=== PATIENT | male | born 1980 | race African-American/Black ===

== ENCOUNTER 2017-07-10 06:51 | Emergency (ER) | payer OTHER ==
[2017-07-10 07:21] VITALS: BMI 26.6
--- NOTE | 2017-07-10 07:34 | PDOC ---
Attending Attestation - Resident Resident Name: Garrick Strange - ED Attending Attestation I have performed the following: I have examined & evaluated the patient, The case was reviewed & discussed with the resident, I agree w/resident's findings & plan, Exceptions are as noted - Medical Decision Making 07/10/17 08:15 36yo M presents to the ED requesting STI testing. Pt intoxicated. Consents verbally to HIV test. Plan -HIV test -GC/CT testing -reassess 07/10/17 10:05 HIV testing negative. Tx empirically for STI with azithro/ctx Pt has metabolized etoh, ambulating in ED with steady gait with no complaints Tolerating PO Requests DC home. I discussed the physical exam findings, ancillary test results and final diagnoses with the patient. I answered all of the patient's questions. The patient was satisfied with the care received and felt comfortable with the discharge plan and treatment plan. The patient will call their primary care physician within 24 hours to arrange follow-up and will return to the Emergency Department with any new, persistent or worsening symptoms. <Arvin Herr - Last Filed: 07/10/17 10:10> - HPI HPI: 07/10/17 08:54 The patient is a 36 year old male, with no significant past medical history, who presents to the emergency department requesting STI testing. The patient states that he is having unprotected sex with his girlfriend. He states that he has no reason to believe that he has an STI but he wants to be tested anyways. He denies any fever, chills, headache, dysuria, hematuria, urinary frequency/ urgency or any penile discharge. The patient reports consuming one beer prior to presenting to the emergency department. Denies drug use. Denies sore throat, rash. Denies CP/SOB. Allergies: None reported. Past Surgical History: None reported. Social History: Non-smoker. Reports alcohol use. Denies drug use. - Physicial Exam PE: 07/10/17 08:54 GENERAL: Alcohol noted on breath. Awake, alert, and fully oriented, in no acute distress. HEAD: No signs of trauma. EYES: PERRLA, EOMI, sclera anicteric, conjunctiva clear. ENT: Auricles normal inspection, hearing grossly normal, nares patent, oropharynx clear without exudates. Moist mucosa. NECK: Normal ROM, supple, no lymphadenopathy, JVD, or masses. LUNGS: Breath sounds equal, clear to auscultation bilaterally. No wheezes, and no crackles. HEART: Regular rate and rhythm, normal S1 and S2, no murmurs, rubs or gallops. ABDOMEN: Soft, nontender, normoactive bowel sounds. No guarding, no rebound. No masses. EXTREMITIES: Normal range of motion, no edema. No clubbing or cyanosis. No cords , erythema, or tenderness. BACK: No midline spinal tenderness in cervical/thoracic/lumbar region. NEUROLOGICAL: Normal speech, cranial nerves intact, negative pronator drift, 5/ 5 strength in all 4 extremities, normal sensation to light touch in all 4 extremities, normal cerebellar exam, normal gait, normal reflexes and tone. SKIN: Warm, dry, normal turgor, no rashes or lesions noted. - Medical Decision Making 07/10/17 11:00 Documentation prepared by Kiah Johnson, acting as medical coding specialist for Arvin Herr MD. <Kiah Johnson - Last Filed: 07/10/17 11:00>
--- NOTE | 2017-07-10 08:36 | PDOC ---
History of Present Illness - General History Source: Patient Exam Limitations: Intoxication - History of Present Illness Initial Comments: 07/10/17 08:21 36m intoxicated patient known for use of marijuana and PCP comes to the ED requesting an STD panel test. He denies any risky sexual activity but states he has unprotected with his girlfriend and wants a regular check up. Patient states that that he only had one beer this morning. No symptoms of STD at this time. <Garrick Strange - Last Filed: 07/10/17 09:49> <Arvin Herr - Last Filed: 07/10/17 09:52> - General Chief Complaint: Pain Stated Complaint: STI EVALUATION Time Seen by Provider: 07/10/17 07:24 Past History - Past Medical History COPD: No - Immunization History Immunization Up to Date: No - Suicide/Smoking/Psychosocial Hx Smoking Status: Yes Smoking History: Current every day smoker Have you smoked in the past 12 months: Yes Number of Cigarettes Smoked Daily: 6 If you are a former smoker, when did you quit?: did not want packet or hiv info sheet Information on smoking cessation initiated: Yes 'Breaking Loose' booklet given: 07/10/17 Hx Alcohol Use: No Drug/Substance Use Hx: No Substance Use Type: None Hx Substance Use Treatment: No <Garrick Strange - Last Filed: 07/10/17 09:49> <Arvin Herr - Last Filed: 07/10/17 09:52> - Past Medical History Allergies/Adverse Reactions: Allergies Allergy/AdvReac Type Severity Reaction Status Date / Time No Known Allergies Allergy Verified 07/10/17 07:16 Home Medications: Ambulatory Orders NK [No Known Home Medication] 06/21/14 Review of Systems - Review of Systems Able to Perform ROS?: Yes Is the patient limited Marshallese proficient: No Constitutional: No: Symptoms Reported HEENTM: No: Symptoms Reported Respiratory: No: Symptoms reported Cardiac (ROS): No: Symptoms Reported ABD/GI: No: Symptoms Reported : No: Symptoms Reported Musculoskeletal: No: Symptoms Reported Integumentary: No: Symptoms Reported Neurological: No: Symptoms reported All Other Systems: Reviewed and Negative <Garrick Strange - Last Filed: 07/10/17 09:49> *Physical Exam - Vital Signs Last Vital Signs Temp Pulse Resp BP Pulse Ox 99.2 F 110 H 18 139/86 100 07/10/17 07:18 07/10/17 07:18 07/10/17 07:18 07/10/17 07:18 07/10/17 07:18 - Physical Exam General Appearance: Yes: Intoxicated HEENT: positive: EOMI, GLENDY, Normal ENT Inspection Respiratory/Chest: positive: Lungs Clear, Normal Breath Sounds. negative: Chest Tender, Respiratory Distress Cardiovascular: positive: Regular Rhythm, Regular Rate, S1, S2 Gastrointestinal/Abdominal: positive: Normal Bowel Sounds, Flat, Soft. negative : Tender Musculoskeletal: positive: Normal Inspection. negative: CVA Tenderness Extremity: positive: Normal Capillary Refill, Normal Inspection, Normal Range of Motion Integumentary: positive: Normal Color, Dry, Warm Neurologic: positive: Fully Oriented, Alert, Normal Mood/Affect, Normal Response , Motor Strength 5/5 <Garrick Strange - Last Filed: 07/10/17 09:49> - Vital Signs Last Vital Signs Temp Pulse Resp BP Pulse Ox 99.2 F 110 H 18 139/86 100 07/10/17 07:18 07/10/17 07:18 07/10/17 07:18 07/10/17 07:18 07/10/17 07:18 <Arvin Herr - Last Filed: 07/10/17 09:52> Medical Decision Making - Medical Decision Making 07/10/17 08:41 36m presents to the for std test, intoxicated. Will draw std panel and discharge. <Garrick Strange - Last Filed: 07/10/17 09:49> *DC/Admit/Observation/Transfer - Discharge Dispostion Admit: No <Garrick Strange - Last Filed: 07/10/17 09:49> <Arvin Herr - Last Filed: 07/10/17 09:52> Diagnosis at time of Disposition: Screen for STD (sexually transmitted disease) - Discharge Dispostion Disposition: HOME Condition at time of disposition: Unchanged/Unknown - Patient Instructions Printed Discharge Instructions: Facts About Sexually Transmitted Infections Additional Instructions: 07/10/17 1. As discussed, a screening test for the HIV virus was performed today. Your HIV test is Negative (normal). 2. As discussed, if you engaged in high risk-behavior in the three (3) months prior to this test, you could still potentially be at risk and you will need to be re-tested. 3. As discussed, avoid any high risk behavior (such as unprotected sex or needle-sharing) in the future to minimize the chances of gavi HIV. Come back to the ER for any new, worsening or concerning symptoms
[2017-07-10] MEDS ORDERED: AZITHROMYCIN 500 MG TABLET PO ONE ×2 (09:56→10:12)
[2017-07-10] MEDS ORDERED: cefTRIAXone SODIUM 1 GM VIAL ONE (09:59)
[2017-07-10] MEDS ORDERED: AZITHROMYCIN 250 MG TABLET ONE ×2 (09:59→10:06)
[2017-07-10] MEDS ORDERED: LIDOCAINE HCL 1%, 10 MG/ML (20ML VIAL) ONE (10:00)
[2017-07-10] MEDS ORDERED: AZITHROMYCIN 1 GM PACKET PO ONE (10:06)
[2017-07-10 10:12] VITALS: BP 129/75; PULSE 84; TEMP 98.4
== END 2017-07-10 10:12 | disposition home or self-care (01) ==
LOC: JER 06:51
DX: Z11.3 Encounter for screening for infections with a predominantly sexual mode of transmission (principal); F17.210 Nicotine dependence, cigarettes, uncomplicated
CPT/HCPCS: 36415; 86593; 87389; 87491; 87591; 99281-25

== ENCOUNTER 2018-08-19 09:04 | Emergency (ER) | payer OTHER | END 2018-08-19 10:16 | disposition home or self-care (01) | LOC: JERFT 09:04 ==

== ENCOUNTER 2018-10-04 05:00 | Emergency (ER) | payer OTHER | END 2018-10-04 06:07 | disposition home or self-care (01) | LOC: JER 05:00 ==

== ENCOUNTER 2019-10-26 18:26 | Emergency (ER) | payer OTHER ==
--- NOTE | 2019-10-26 18:31 | PDOC ---
Rapid Medical Evaluation Time Seen by Provider: 10/26/19 18:30 Medical Evaluation: Allergies Allergy/AdvReac Type Severity Reaction Status Date / Time No Known Allergies Allergy Verified 10/04/18 05:03 10/26/19 18:30 I have performed a brief in-person evaluation of this patient. CC: "I need a psychiatric evaluation." Denies AH,VH,SI,HI,PI. PE: No focal findings. Orders: nothing Patient to proceed to ED for further evaluation. 10/26/19 18:31 Discharge Disposition - Diagnosis Psychiatric care - Referrals - Patient Instructions - Post Discharge Activity
[2019-10-26 18:52] VITALS: TEMP 98.6; BMI 25.0
--- NOTE | 2019-10-26 19:21 | PDOC ---
History of Present Illness - General Chief Complaint: Suicidal Stated Complaint: ANXIETY Time Seen by Provider: 10/26/19 18:30 Past History - Medical History Allergies/Adverse Reactions: Allergies Allergy/AdvReac Type Severity Reaction Status Date / Time No Known Allergies Allergy Verified 10/26/19 18:31 Home Medications: Ambulatory Orders Sertraline HCl [Zoloft -] 25 mg PO DAILY #30 tablet 10/27/19 COPD: No - Immunization History Immunization Up to Date: No - Psycho-Social/Smoking History Smoking Status: Yes Smoking History: Current every day smoker Have you smoked in the past 12 months: Yes Number of Cigarettes Smoked Daily: 6 If you are a former smoker, when did you quit?: did not want packet or hiv info sheet Information on smoking cessation initiated: No 'Breaking Loose' booklet given: 07/10/17 - Substance Abuse Hx (Audit-C & DAST Scrn) How often the patient has a drink containing alcohol: Never Score: In Men: 4 or > Positive; In Women: 3 or > Positive: 0 Screen Result (Pos requires Nsg. Audit-10AR): Negative In the last yr the pt used illegal drug/Rx for NonMed reason: No Score: Yes response is considered Positive: 0 Screen Result (Positive result requires Nsg. DAST-10): Negative *Physical Exam - Vital Signs Last Vital Signs Temp Pulse Resp BP Pulse Ox 98.6 F 96 H 18 117/70 95 10/26/19 18:32 10/26/19 18:32 10/26/19 18:32 10/26/19 18:32 10/26/19 18:32 ED Treatment Course - LABORATORY CBC & Chemistry Diagram: 10/26/19 09:27 10/26/19 09:27 Medical Decision Making - Medical Decision Making 10/26/19 19:20 HPI: 39yo M hx smoking and polysubstance abuse (alcohol, K2, smoking, multiple others will not say which) presents from home c/o depression and wanting to get his life together. Pt does not know how long he's been depressed. Pt states he wants to sleep, be monitored, and see a mental health specialist. Pt states he's medically and physically fine and refuses labs. Pt states he does not have a sa fe place to go tonight. States last use of alcohol and all substances was yesterday. Pt states he went to get his ID from [employer] yesterday and was refused and it made him depressed. Denies hx suicide, hx self-harm, SI, HI, AVH, pain anywhere, trauma, head injury, fall, fever, chills, headache, dizziness, numbness/tingling, weakness, vision changes, shortness of breath, cough, chest pain, palpitations, leg swelling, abdominal pain, blood in stool, diarrhea, constipation, nausea, vomiting, dysuria, hematuria, confusion. ROS: Constitutional: Positive for wanting to sleep. Negative for chills, fever, fatigue, diaphoresis. HENT: Negative for sore throat, rhinorrhea, congestion. Eyes: Negative for visual disturbance. Respiratory: Negative for shortness of breath, cough, and wheezing. Cardiovascular: Negative for chest pain, palpitations, and leg swelling. Gastrointestinal: Negative for abdominal pain, blood in stool, constipation, diarrhea, nausea, and vomiting. Genitourinary: Negative for dysuria, flank pain, and hematuria. Musculoskeletal: Negative for myalgias, back pain, and neck pain. Skin: Negative for rash. Neurological: Negative for light-headedness, dizziness, vertigo, syncope, weakness, numbness and headaches. Psychiatric/Behavioral: Positive for depression and polysubstance abuse. Negative for SI, HI, AVH, confusion. PE: Gen: Alert, NAD, comfortable-appearing. HEENT: PERRL, EOMI, MMM, NCAT. No conjunctival pallor. Sclera are non-icteric. CV: Regular rate and rhythm. No murmurs, rubs, or gallops. PULM: No resp distress. CTAB, no wheezes, rales, or rhonchi. ABD: soft, NT/ND, no rebound tenderness or guarding. BACK: No TTP of c/t/l-spine. No step-offs or deformities. MSK: No bony deformities. 2+ pulses in all extremities. NEURO: AAOx3. PERRL. No gross CN deficits. Strength and sensation grossly intact throughout. Normal gait. EXTREMITIES: No cyanosis. No clubbing. No edema. No calf tenderness. PSYCH: Anxious depressed mood, paranoid thought pattern, some flight of ideas, no pressured speech. SKIN: Warm and dry. Normal capillary refill. No rashes. No jaundice. MDM: 39yo M hx smoking and polysubstance abuse (alcohol, K2, smoking, multiple others will not say which) presents from home with depression, wanting to get his life together. Hemodynamically stable, afebrile, neurologically intact. Anxious depressed mood, paranoid thought pattern, some flight of ideas, no pressured speech. Ddx: no s/s concerning for emergent medical pathology at this time. Utox to evaluate for substance abuse and substance-induced depression. No SI/HI/AVH endorsed to me, but per chart, pt endorsed SI to nurse - consult psych. -1:1 placed by E -Utox/UA -Psych consult - called Dr Wilkerson -Dispo: pending w/u and reassessment 10/26/19 22:[address] Saucedo. Discharge - Discharge Information Problems reviewed: Yes Clinical Impression/Diagnosis: Psychiatric care Adjustment disorder Qualifiers: Adjustment disorder type: with depressed mood Qualified Code(s): F43.21 - Adjustment disorder with depressed mood Depression Qualifiers: Depression Type: unspecified Qualified Code(s): F32.9 - Major depressive disorder, single episode, unspecified Condition: Stable Disposition: HOME - Additional Discharge Information Prescriptions: Sertraline HCl [Zoloft -] 25 mg PO DAILY #30 tablet - Follow up/Referral Referrals: Usman Garcia MD [Staff Physician] - - Patient Discharge Instructions Patient Printed Discharge Instructions: DI for Depression -- Adult, DI for Adjustment Disorder - Post Discharge Activity Work/Back to School Note: My Personal Safety Plan
--- NOTE | 2019-10-26 20:26 | PDOC ---
Documentation entered by Amparo Hendricks SCRIBE, acting as scribe for Maria Dolores Gutierrez DO. Maria Dolores Gutierrez DO: This documentation has been prepared by the mohiniibe, Amparo Hendricks SCRIBE, under my direction and personally reviewed by me in its entirety. I confirm that the documentation accurately reflects all work, treatment, procedures, and medical decision making performed by me. Attending Attestation - Resident Resident Name: Poonam Santos - ED Attending Attestation I have performed the following: I have examined & evaluated the patient, The case was reviewed & discussed with the resident, I agree w/resident's findings & plan, Exceptions are as noted - HPI HPI: 10/26/19 20:27 The patient is a 39-year-old male with no reported past medical history who presents to the emergency department seeking mental health help. The patient reports he feels depressed and wants to get his life together The patient is requesting to speak to a mental health professional." The patient reports he went to get his identify back at [employer] yesterday but he wasnt able to get it back. Denies any pain. Denies self-harm plan or plans to hurt others. The patient reports he lives alone and brought himself to the ED. The patient endorsed suicidal ideation to nurse at triage, however, during our examination he denies SI or HI. Social history: Denies alcohol or tobacco use today. Denies any medication use. - Physicial Exam PE: 10/26/19 20:18 Constitutional: Awake, alert, oriented. No acute distress. Head: Normocephalic. Atraumatic Eyes: PERRL. EOMI. Conjunctivae are not pale. ENT: Mucous membranes are moist and intact. Posterior pharynx without exudate or erythema. Uvula midline. Neck: Supple. Full ROM. No lymphadenopathy. Cardiovascular: Regular rate. Regular rhythm. S1, S2 regular. Pulmonary/Chest: No evidence of respiratory distress. Clear to auscultation bilaterally No wheezing, rales or rhonchi. Abdominal: Soft and nondistended. There is no tenderness. No rebound, guarding or rigidity. Good bowel sounds. Back: No CVA tenderness. Musculoskeletal: No edema. No cyanosis. No clubbing. Full range of motion in all extremities. No calf tenderness. No leg edema. Skin: Skin is warm and dry. No petechiae. No purpura. Neurological: Alert and oriented to person, place, and time. Cranial nerves II-XII are grossly intact. Normal speech. Ambulates with a Steady gait. Psychiatric: +admits to being depressed, denies SI or HI, +flights of idea and paranoid reactions and commands, Denies hallucination. - Medical Decision Making 10/26/19 20:24 a/p: 39yo male with depression -endorsed SI to triage, but denies si/hi when interviewed -pt with flight of ideas and some paranoid thoughts -pt denies somatic complaints -pt requesting to talk with a "mental health professional" -will send uds -will monitor overnight, pt states he wants to sleep -call placed to Dr. Wilkerson 10/26/19 23:56 pt has been sleeping in the bed pending call back from Dr. Wilkerson 10/27/19 01:25 pt signed out pending eval by Dr. Wilkerson Discharge - Discharge Information Problems reviewed: Yes Clinical Impression/Diagnosis: Psychiatric care - Follow up/Referral - Patient Discharge Instructions - Post Discharge Activity Work/Back to School Note: My Personal Safety Plan
--- NOTE | 2019-10-26 22:03 | PDOC ---
*Physical Exam - Vital Signs Last Vital Signs Temp Pulse Resp BP Pulse Ox 98.6 F 96 H 18 117/70 98 10/26/19 18:32 10/26/19 18:32 10/26/19 18:32 10/26/19 18:32 10/26/19 20:07 Medical Decision Making - Medical Decision Making 10/26/19 22:02 Signed out to me by Dr. Santos. Patient here for mental health care, reported SI to triage. Complaining of depreesion and polysubstance use yesterday. Currently denies SI/HI/AVM. Denies trauma. Getting UTOX for evaluation of which drugs used. Appears intoxicated at this time, no concerning VS or features. Dr. Moore paged, pending callback. Will monitor overnight and keep on 1:1. 10/27/19 01:06 Patient sleeping comfortably in bed. No events. Has not given urine sample or blood works. No callback from Dr. Moore yet. 10/27/19 06:51 No acute events overnight. Patient agitated and demands to leave. Advised that patient cannot leave as he expressed suicidal ideation and is unsafe to leave. Security called. Contacted Dr. Moore again, no response. Left a message for callback. Will sign out to day attending for follow-up. Discharge - Discharge Information Problems reviewed: Yes Clinical Impression/Diagnosis: Psychiatric care - Follow up/Referral - Patient Discharge Instructions - Post Discharge Activity Work/Back to School Note: My Personal Safety Plan
[2019-10-27] MEDS ORDERED: HALOPERIDOL LACTATE 5 MG/ML ONE (08:47)
[2019-10-27] MEDS ORDERED: LORazepam 2 MG/ML SDV VIAL ONE (08:47)
[2019-10-27] MEDS ORDERED: NICOTINE 21 MG/24 HOURS TOPICAL PATCH TD ONE (08:57)
[2019-10-27 09:40] VITALS: BP 118/74; PULSE 70
[2019-10-27 09:50] LABS: PH,URINE 5.5 (5.0-8.0); URINE APPEARANCE CLEAR; URINE BILIRUBIN NEGATIVE (NEGATIVE); URINE COLOR DK YELLOW; URINE GLUCOSE (UA) NEGATIVE (NEGATIVE); URINE KETONE TRACE (NEGATIVE); URINE LEUK ESTERASE NEGATIVE (NEGATIVE); URINE NITRITE NEGATIVE (NEGATIVE); URINE PROTEIN TRACE (NEGATIVE)
[2019-10-27 09:57] LABS: BASO % 1.7 % (0-2.0); EOS % 2.8 % (0-4.5); HEMOGLOBIN 14.7 GM/dL (11.7-16.9); LYMPH % 33.1 % (8-40); MCH 29.2 pg (25.7-33.7); MCHC 32.7 g/dl (32.0-35.9); MEAN CELL VOLUME 89.1 fl (80-96); MEAN PLT VOLUME 8.7 fl (7.5-11.1); MONO % 11.4 % (3.8-10.2); PLATELET COUNT 255 K/MM3 (134-434); RBC 5.05 M/mm3 (4.00-5.60); RDW 13.9 % (11.9-15.9); WHITE BLOOD COUNT 5.2 K/mm3 (4.0-10.0)
[2019-10-27 10:11] LABS: COCAINE, UR NEGATIVE ng/ml (CUTOFF=300); OPIATES, URI NEGATIVE ng/ml (CUTOFF=300); URINE BARBITURATES NEGATIVE ng/ml (CUTOFF=200)
--- NOTE | 2019-10-27 10:12 | CON.PSY ---
Psychiatry Consult Chief Complaint: 39 year old Male with a History of PTSD and Alcohol abuse came to Er looking to speak toa Psych. He reports that he never said he was suicidla or had any intention to KIll himself. Went to [facility] but was refused care.. They dont like me. Patient reports he wsas in Shelter for 6 Months and was released in Mar. He had been [facility] [address] [place] [address] in [place] but was unable to see any one bercause of COVID> He lives with his sisterr in [place]. Symptoms: reports: Depressed Mood - Previous Psychiatric Treatment Outpatient: More than 6 mos ago Inpatient: One prior admission - Previous Substance Abuse Treatment Outpatient: None - Reason for Previous Treatment Reason for Previous Treatment: Major Depression, Alcohol Abuse - Allergies Allergies: Allergies Allergy/AdvReac Type Severity Reaction Status Date / Time No Known Allergies Allergy Verified 10/26/19 18:31 - Current Living Status Usual Living Arrangement: With Parent - Current Mental Status Evaluation Appearance: Disheveled Attitude: Cooperative - Affect Appropriateness: Appropriate to Content - Mood Mood: Euthymic - Speech/Language Expressive: Coherent - Psychomotor Activity Psychomotor Activity: Normal - Thought Process Thought Process: Intact - Thought Content Hallucinations: Absent Delusions: Absent - Self Perception Self Perception: No Impairment - Cognition Attention: Alert Orientation: Time Memory, Immediate Recall: Intact Memory, Short Term: 3/3 Memory, Remote with Promptin/3 - Concentration Serial Sevens Intact: No Simple Calculations Intact: Yes - Abstraction Proverb Interpretation: Intact Judgement: Minimally Impaired - Insight Insight: Intact - Impulse Control Impulse Control: Good Control - Suicidal Ideation Suicidal Ideation: No - Homicidal Ideation Homicidal Ideation: No Assessment/Plan 1) Zoloft 25 mg po od for PTSD. 2) w ill follow with [address] [place] [address], 3) d/c From Er.
--- NOTE | 2019-10-27 10:16 | PDOC ---
*Physical Exam - Vital Signs Last Vital Signs Temp Pulse Resp BP Pulse Ox 98.6 F 70 20 118/74 97 10/26/19 18:32 10/27/19 09:37 10/27/19 09:37 10/27/19 09:37 10/27/19 09:37 - Physical Exam 10/27/19 10:13 seen by psych, adustment disorder/depresion. safe for d/c on zoloft as per psych. ED Treatment Course - LABORATORY CBC & Chemistry Diagram: 10/26/19 09:27 10/26/19 09:27 - ADDITIONAL ORDERS Additional order review: Laboratory Results 10/26/19 10/26/19 09:31 09:31 Urine Color Dk yellow Urine Appearance Clear Urine pH 5.5 Ur Specific [place] 1.034 Urine Protein Trace Urine Glucose (UA) Negative Urine Ketones Trace H Urine Blood Negative Urine Nitrite Negative Urine Bilirubin Negative Urine Urobilinogen 1.0 Ur Leukocyte Esterase Negative Opiates Screen Negative Barbiturate Screen Negative MDMA (Ecstasy) Screen Negative Cocaine Screen Negative - Medications Given in the ED: ED Medications Discontinued Medications Generic Name Dose Route Start Last Admin Trade Name Willq PRN Reason Stop Dose Admin Nicotine 21 mg 10/27/19 08:57 10/27/19 09:06 Nicoderm Patch - TD 10/27/19 08:58 21 mg ONCE ONE Administration Discharge - Discharge Information Problems reviewed: Yes Clinical Impression/Diagnosis: Psychiatric care Adjustment disorder Qualifiers: Adjustment disorder type: with depressed mood Qualified Code(s): F43.21 - Adjustment disorder with depressed mood Depression Qualifiers: Depression Type: unspecified Qualified Code(s): F32.9 - Major depressive disorder, single episode, unspecified Condition: Stable Disposition: HOME - Follow up/Referral Referrals: Usman Garcia MD [Staff Physician] - - Patient Discharge Instructions Patient Printed Discharge Instructions: DI for Adjustment Disorder, DI for Depression -- Adult - Post Discharge Activity Work/Back to School Note: My Personal Safety Plan
[2019-10-27 10:21] LABS: BLOOD UREA NITROGEN 10.8 mg/dL (7-18); CALCIUM 8.8 mg/dL (8.5-10.1); CREATININE 1.1 mg/dL (0.55-1.3); POTASSIUM 4.3 mmol/L (3.5-5.1)
[2019-10-27 10:34] LABS: METHADONE, UR NEGATIVE ng/ml (CUTOFF=300); URINE AMPHETAMINES NEGATIVE ng/ml (CUTOFF=500); URINE BENZODIAZEPINES NEGATIVE ng/ml (CUTOFF=200)
[2019-10-27 10:39] LABS: PHENCYCLIDINE,URINE POSITIVE ng/ml (CUTOFF=25)
--- NOTE | 2019-10-29 10:49 | EKG ---
Test Reason : Blood Pressure : / mmHG Vent. Rate : 063 BPM Atrial Rate : 063 BPM P-R Int : 150 ms QRS Dur : 086 ms QT Int : 384 ms P-R-T Axes : 052 060 062 degrees QTc Int : 392 ms NORMAL SINUS RHYTHM WITH SINUS ARRHYTHMIA NORMAL ECG WHEN COMPARED WITH ECG OF 02-JUN-2012 15:44, NO SIGNIFICANT CHANGE WAS FOUND Confirmed by GRADY MOREL MD ([id number]) on 10/29/2019 10:49:22 AM Referred By: Confirmed By:GRADY MOREL MD
== END 2019-10-27 10:45 | disposition home or self-care (01) ==
LOC: JER 18:26
DX: F43.21 Adjustment disorder with depressed mood (principal); F32.9 Major depressive disorder, single episode, unspecified
CPT/HCPCS: 36415; 80048; 80307; 81003; 84443; 85025; 87389; 93005; 93010; 99284-25

== ENCOUNTER → 2019-12-16 | Emergency (ER) | payer OTHER ==
[2019-12-16 07:12] VITALS: BP 92/60; PULSE 79; TEMP 98.3; BMI 25.8
--- NOTE | 2019-12-16 07:42 | PDOC ---
Attending Attestation - Resident Resident Name: Anni Cason - ED Attending Attestation I have performed the following: I have examined & evaluated the patient, The case was reviewed & discussed with the resident, I agree w/resident's findings & plan, Exceptions are as noted - HPI HPI: 12/16/19 07:46 39y M hx of polysubstance abuse presents for staple removal. The pt has lennie in his head placed recently at [facility] to have his lennie taken out. When we went to assess him, he stated he doesnt think they were ready. he was unsure of when they were placed, we called and verify he was last admitted on 12/09. The pt declines to have it taken out, states he will go back to [place] to have them taken out. he denie sany othe rcomplaints in cluding pain, bleeding, n/v, vision changes. - Physicial Exam PE: 12/16/19 07:54 Exam: General: no acute distress Skin: lennie in place, wella pproximated wound without any erythema/induration/fluctuane/bleeding. - Medical Decision Making 12/16/19 07:54 a&p lennie usually removed at 7-10 days he is at 6 days no complications will dc him to [facility] for removal in 1-4 days. Discharge - Discharge Information Problems reviewed: Yes Clinical Impression/Diagnosis: Encounter for staple removal Condition: Stable Disposition: HOME - Admission No - Follow up/Referral - Patient Discharge Instructions Additional Instructions: You were seen in the emergency department today for staple removal. You weren't sure which day they were put in. We called [facility] and you were admitted on 12/10/2019. They can stay in a 3-4 more days. Please return to [facility] to have them removed between 12/17-12-19 Return to the ED with any new or worsening symptoms. Return if the lennie open, liquid starts coming out, or if you develop a fever. - Post Discharge Activity
--- NOTE | 2019-12-16 07:43 | PDOC ---
History of Present Illness - General Chief Complaint: Suture/Staple Removal (other) Stated Complaint: SUTURE REMOVAL Time Seen by Provider: 12/16/19 07:22 - History of Present Illness Initial Comments: 12/17/19 12:47 This is a 39 y/o male PMH of substance abuse presenting to the ED for staple removal from the back of his head. He states they were placed at [facility] but doesn't know when. He said that he wanted them out, but then became hesitant to have them removed because he wasn't sure which day they were put in. He was concerned they weren't ready to come out. [facility] was called, and he was admitted there 12/09 so the lennie were placed 6 days ago. Sutures look okay to take out, however patient will go back to [facility] in 3-4 days to have them removed. Past History - Medical History Allergies/Adverse Reactions: Allergies Allergy/AdvReac Type Severity Reaction Status Date / Time No Known Allergies Allergy Verified 12/16/19 07:06 Home Medications: Ambulatory Orders Sertraline HCl [Zoloft -] 25 mg PO DAILY #30 tablet 10/27/19 COPD: No - Immunization History Immunization Up to Date: No - Psycho-Social/Smoking History Smoking Status: Yes Smoking History: Never smoked Have you smoked in the past 12 months: Yes Number of Cigarettes Smoked Daily: 6 If you are a former smoker, when did you quit?: did not want packet or hiv info sheet 'Breaking Loose' booklet given: 12/02/19 - Substance Abuse Hx (Audit-C & DAST Scrn) How often the patient has a drink containing alcohol: Never Score: In Men: 4 or > Positive; In Women: 3 or > Positive: 0 Screen Result (Pos requires Nsg. Audit-10AR): Negative In the last yr the pt used illegal drug/Rx for NonMed reason: No Score: Yes response is considered Positive: 0 Screen Result (Positive result requires Nsg. DAST-10): Negative Review of Systems - Review of Systems Constitutional: No: Chills, Fever HEENTM: No: Blurred Vision, Double Vision Respiratory: No: Cough, SOB at Rest Cardiac (ROS): No: Chest Pain, Lightheadedness ABD/GI: No: Nausea, Vomiting Musculoskeletal: No: Muscle Pain, Muscle Weakness Integumentary: No: Dryness, Erythema Neurological: No: Headache, Numbness *Physical Exam - Vital Signs Last Vital Signs Temp Pulse Resp BP Pulse Ox 98.3 F 79 20 92/60 100 12/16/19 07:06 12/16/19 07:06 12/16/19 07:06 12/16/19 07:06 12/16/19 07:06 - Physical Exam General Appearance: Yes: Disheveled. No: Apparent Distress HEENT: positive: EOMI, GLENDY, Other (8 sutures in back of head. Healed wound with no d/c no erythema) Neck: positive: Trachea midline, Supple Respiratory/Chest: positive: Lungs Clear, Normal Breath Sounds Cardiovascular: positive: Regular Rhythm, Regular Rate Musculoskeletal: positive: Normal Inspection. negative: Decreased Range of Motion Extremity: positive: Normal Capillary Refill, Normal Inspection Integumentary: positive: Normal Color, Dry Neurologic: positive: agricultural agent II-XII NML intact, Alert Discharge - Discharge Information Problems reviewed: Yes Clinical Impression/Diagnosis: Encounter for staple removal Condition: Stable Disposition: HOME - Follow up/Referral - Patient Discharge Instructions Additional Instructions: You were seen in the emergency department today for staple removal. You weren't sure which day they were put in. We called [facility] and you were admitted on 12/10/2019. They can stay in a 3-4 more days. Please return to [facility] to have them removed between 12/17-12-19 Return to the ED with any new or worsening symptoms. Return if the lennie open, liquid starts coming out, or if you develop a fever. - Post Discharge Activity
--- OUTSIDE RECORDS SUMMARY | 2019-12-16 08:25 | XMS ---
:1980 Author Organization [facility] Care Team Providers Name Role Phone PAULA REED Unavailable Unavailable ED STAFF PHYSICIAN Unavailable Unavailable ED STAFF PHYSICIAN Unavailable Unavailable VALERIY Melgar Unavailable Unavailable ED STAFF PHYSICIAN Unavailable Unavailable ED STAFF PHYSICIAN Unavailable Unavailable ED STAFF PHYSICIAN Unavailable Unavailable ED STAFF PHYSICIAN Unavailable Unavailable ORI Velásquez Unavailable Unavailable LEIGHA Menon Unavailable Unavailable ED STAFF PHYSICIAN Unavailable Unavailable ZUNASSIGNED Unavailable Unavailable ED STAFF PHYSICIAN Unavailable Unavailable Re-disclosure Warning The records that you are about to access may contain information from federally- assisted alcohol or drug abuse programs. If such information is present, then the following federally mandated warning applies: This information has been disclosed to you from records protected by federal confidentiality rules (42 CFR part 2). The federal rules prohibit you from making any further disclosure of this information unless further disclosure is expressly permitted by the written consent of the person to whom it pertains or as otherwise permitted by 42 CFR part 2. A general authorization for the release of medical or other information is NOT sufficient for this purpose. The Federal rules restrict any use of the information to criminally investigate or prosecute any alcohol or drug abuse patient.The records that you are about to access may contain highly sensitive health information, the redisclosure of which is protected by Article 27-F of the [place] State Public Health law. If you continue you may haveaccess to information: Regarding HIV / AIDS; Provided by facilities licensed or operated by the [facility] Office of Mental Health; or Provided by the [facility] Office for People With Developmental Disabilities. If such information is present, then the following [facility] mandated warning applies: This information has been disclosed to you from confidential records which are protected by state law. State law prohibits you from making any further disclosure of this information without the specific written consent of the person to whom it pertains, or as otherwise permitted by law. Any unauthorized further disclosure in violation of state law may result in a fine or care home sentence or both. A general authorization for the release of medical or other information is NOT sufficient authorization for further disclosure. Encounters Encounter Providers Location Date Indications Data Source(s ) Emergency Attender: JOSELINE Tran 12/14/2019 [facility] 10:40:00 AM Medical [facility] Martinez: STAFF ED EDT - STAFF 12/14/2019 PHYSICIANAdmitter: 11:33:00 AM JOSELINE TREVIZO EDT SReferrer: ZUNASSIGNED Patient discharged. 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 Emergency Attender: JOSELINE Tran 11/30/2019 12:46 :00 PM [facility] Mora: STAFF ED STAFF EDT - 11/30/2019 [facility] PHYSICIANAdmitter: JOSELINE 01:50:00 PM EDT LEIGHA Melendezferrer: ZUNASSIGNED Patient discharged. Emergency Attender: VALERIY Tran 11/27/2019 08:55:00 PM [facility] Matias: STAFF ED STAFF EDT - 11/27/2019 [facility] PHYSICIANAdmitter: VALERIY 11:45:00 PM EDT KULWINDER LReferrer: STAFF ED STAFF PHYSICIAN Patient discharged. Emergency Attender: JOSELINE TREVIZO 11/25/2019 08:44 :00 AM [facility] SAttender: STAFF ED STAFF EDT - 11/25/2019 [facility] PHYSICIANAdmitter: JOSELINE 10:08:00 AM EDT LEIGHA Richardsrer: ZUNASSIGNED Patient discharged. Emergency Attender: ED STAFF 11/24/2019 12:28:00 PM [facility] PHYSICIANAttender: ED STAFF EDT - 11/24/2019 [facility] PHYSICIANAttender: STAFF ED 11:14:00 PM EDT STAFF PHYSICIANAdmitter: ED STAFF PHYSICIANReferrer: ZUNASSIGNED Patient discharged. Emergency Attender: JOSELINE TREVIZO 11/19/2019 04:15 :00 PM [facility] Morgan: STAFF ED STAFF EDT - 11/19/2019 [facility] PHYSICIANAdmitter: JOSELINE 04:44:00 PM EDT LEIGHA Lover: ZUNASSIGNED Patient discharged. Emergency Attender: ED STAFF 11/18/2019 09:41:00 PM [facility] PHYSICIANAttender: STAFF ED EDT - 11/18/2019 [facility] STAFF PHYSICIANAdmitter: ED 11:13:00 PM EDT STAFF PHYSICIAN Patient discharged. Emergency Attender: ED STAFF 11/15/2019 02:41:00 PM [facility] PHYSICIANAttender: STAFF ED EDT - 11/16/2019 [facility] STAFF PHYSICIANReferrer: STAFF 05:47:00 AM EDT ED STAFF PHYSICIAN Patient discharged. Emergency Attender: ED STAFF 11/12/2019 11:14:00 PM [facility] PHYSICIANAttender: STAFF ED EDT - 11/13/2019 [facility] STAFF PHYSICIANAdmitter: ED 12:25:00 AM EDT STAFF PHYSICIAN Patient discharged. Emergency Attender: ORI Tran 11/12/2019 12:28:00 PM [facility] KAttenisa: STAFF ED STAFF EDT - 11/12/2019 [facility] PHYSICIANAdmitter: ORI 05:09:00 PM EDT ALISON Velásquez Patient discharged. Emergency Attender: GAIL ED STAFF H 11/12/2019 09:31:00 AM [facility] PHYSICIANAttender: STAFF ED EDT - 11/12/2019 [facility] STAFF PHYSICIANAdmitter: GAIL 01:24:00 PM EDT ED STAFF PHYSICIAN Patient discharged. Emergency Attender: ED STAFF H 10/25/2019 11:26:00 AM [facility] PHYSICIANAttender: STAFF ED EDT - 10/25/2019 [facility] STAFF PHYSICIANAdmitter: ED 11:55:00 AM EDT STAFF PHYSICIAN Patient discharged. Emergency Attender: GAIL ED STAFF H 10/24/2019 01:32:00 PM [facility] PHYSICIANAttender: STAFF ED EDT - 10/24/2019 [facility] STAFF PHYSICIANAdmitter: GAIL 03:18:00 PM EDT ED STAFF PHYSICIAN Patient discharged. Emergency Attender: ED STAFF H 10/23/2019 05:44:00 PM [facility] PHYSICIANAttender: STAFF ED EDT - 10/23/2019 [facility] STAFF PHYSICIANReferrer: STAFF 08:58:00 PM EDT ED STAFF PHYSICIAN Patient discharged. Emergency Attender: STAFF ED STAFF H 10/23/2019 03:49:00 PM [facility] PHYSICIAN EDT - 10/23/2019 04:58:00 Center PM EDT Patient discharged. Emergency Attender: JOSELINE TREVIZO H 10/21/2019 09:23 :00 AM [facility] SAttender: STAFF ED STAFF EDT - 10/21/2019 [facility] PHYSICIANAdmitter: JOSELINE 05:13:00 PM EDT LEIGHA Menon Patient discharged. Emergency Attender: FRIDA ED STAFF H 05/25/2019 11:32:00 PM [facility] PHYSICIANAttender: STAFF ED EDT - 05/26/2019 [facility] STAFF PHYSICIANAdmitter: FRIDA 01:19:00 PM EDT ED STAFF PHYSICIAN Patient discharged. Unlisted evaluation 05/24/2019 01:00:00 [facility]SMART (Mental and management PM EDT [facility]) Emergency Attender: PHILIP ED H 05/12/2019 07:04:00 [facility] Medical STAFF PM EST - 05/12/2019 [place] PHYSICIANAttender: 10:48:00 PM EST STAFF ED STAFF PHYSICIANAdmitter: PHILIP ED STAFF PHYSICIAN Patient discharged. Unlisted evaluation and 05/11/2019 03:30:00 PM EST NETSMART (Mental Health management service [facility]) Unlisted evaluation and 04/13/2019 07:15:00 PM EST NETSMART (Mental Health management service [facility]) Emergency H 2018 01:07:00 AM EDT [facility] Emergency H 06/20/2017 02:36:00 PM EDT [facility] Medications Medication Brand Start Product Dose Route Administrative Pharmacy [facility] Indications Reaction Description Data Name Date Form Instructions Instructions Source(s) Ativan Ativan 2 mg UNK active Ativan [facility] (Lorazepam) (Loraz 2019 (Lorazepam) [place]) 03:58: Injection 2 Healt h I 55 PM mg IVP Care EDT Corporatio n Medication administered onsite Insurance Providers Payer name Policy type Policy ID Covered Covered republican's Policy P jeramie / Coverage republican ID relationship to [place] Inf ormation type davis HIP MEDICAID [id number] SP [id number] 1 O [employer] DEAN O [id number] 01 [id number] 01 1 VALUE [id number] SP [id number] 01 OPTIONS-MEDICA 1 ID [place] [employer] DEAN O [id number] 01 [id number] 01 1 HIP MEDICAID O [id number] 01 [id number] HMO OP 1 HIP [employer] DEAN MD [id number] SP [id number] 1 HIP MEDICAID O [id number] 01 [id number] HMO OP VALUE [id number] SP [id number] 01 OPTIONS-MEDICA 1 ID [place] O [id number] 01 [id number] [employer] DEAN-HIP 1 W [id number] 01 [id number] MEDICAID [id number] SP [id number] [facility] [id number] 01 [id number] HEALTHCARE Problems, Conditions, and Diagnoses Code Display Name Description Problem Type Effective Data Sour ce(s) Dates [id number] Adjustment Adjustment Complaint 05/24/2019 [facility] disorder with disorder with 04:00:00 PM (Mental Health mixed anxiety and mixed anxiety and EDT Association of depressed mood depressed mood Kevan luna) [id number] Social and Social and Complaint 05/24/2019 [facility] Personal History Personal History 04:00:00 AM ( Mental Health Finding (is Finding (is EDT Association of broader (less broader (less [address] ter) specific) than) specific) than) F17.210 Nicotine NICOTINE Diagnosis 12/14/2019 [facility] dependence, DEPENDENCE, 10:40:[address] cigarettes, CIGARETTES, EDT uncomplicated UNCOMPLICATED F19.10 Other OTHER Diagnosis 12/14/2019 [facility] psychoactive PSYCHOACTIVE 10:40:00 AM Medical C enter substance abuse, SUBSTANCE ABUSE, EDT uncomplicated UNCOMPLICATED M25.569 Pain in PAIN IN Diagnosis 12/14/2019 [facility] unspecified knee UNSPECIFIED KNEE 10:40:00 AM edical Center EDT 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 admission ADMISSION Z20.828 Contact with and CONTACT W AND Diagnosis 12/13/2019 [facility] heck (suspected) EXPOSURE TO OTH 10:50:00 AM [facility] exposure to other VIRAL EDT Care viral COMMUNICABLE [facility] communicable DISEASES diseases Y92.830 Public park as PUBLIC PARK Diagnosis 12/13/[address] of THE PLACE OF 10:50:00 AM [facility] alth occurrence of the OCCURRENCE OF THE EDT Care external cause EXTERNAL CAUSE Corpor ation W10.8XXA Fall (on) (from) FALL (ON) (FROM) Diagnosis 12/13/2019 [facility] stpengilly other stairs and OTHER STAIRS AND 10:50:00 AM [facility] steps, initial STEPS, INITIAL EDT Care encounter ENCOUNTER [employer] S01.01XA Laceration LACERATION Diagnosis 12/12/2019 [place] without foreign WITHOUT FOREIGN 01:16:00 PM [facility] body of scalp, BODY OF SCALP, EDT Care initial encounter INITIAL ENCOUNTER [employer] Z53.20 Procedure and PROC/TRTMT NOT Diagnosis 12/03/2019 [facility] treatment not CRD OUT BEC PT 01:46:[address] 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/30/2019 [facility] abuse, ABUSE, 12:46:00 PM [facility] uncomplicated UNCOMPLICATED EDT F91.9 Conduct disorder, CONDUCT DISORDER, Diagnosis 11/27/2019 [facility] unspecified UNSPECIFIED 08:55:[address] EDT R41.82 Altered mental ALTERED MENTAL Diagnosis 11/25/2019 [facility] status, STATUS, 08:44:00 AM [facility] Cent[facility] r unspecified UNSPECIFIED EDT Z78.1 Physical PHYSICAL Diagnosis 11/24/2019 [facility] restraint status RESTRAINT STATUS 12:28:00 PM edical Center EDT Y99.9 Unspecified UNSPECIFIED Diagnosis 11/19/2019 [facility] s external cause EXTERNAL CAUSE 04:15:00 PM Medic al Center status STATUS EDT Y92.[address] Diagnosis 11/19/2019 [facility] or not applicable OR NOT APPLICABLE 04:15:00 PM Medical Center EDT Y93.9 Activity, ACTIVITY, Diagnosis 11/19/2019 [facility] unspecified UNSPECIFIED 04:15:[address] EDT X58.XXXA Exposure to other EXPOSURE TO OTHER Diagnosis 11/19/2019 [facility] specified SPECIFIED 04:15:00 PM Medical Cente r factors, initial FACTORS, INITIAL EDT encounter ENCOUNTER S40.851A Superficial SUPERFICIAL Diagnosis 11/19/2019 [facility] Lobito menon foreign body of FOREIGN BODY OF 04:15:00 PM [facility] right upper arm, RIGHT UPPER ARM, EDT initial encounter INIT ENCNTR Z53.21 Procedure and PROC/TRTMT NOT Diagnosis 11/18/2019 [facility] treatment not CRD OUT D/T PT LV 09:41:00 PM [facility] carried out due [facility]F SEEN BY [facility] EDT to patient CARE PROV leaving prior to being seen by health care provider M79.606 Pain in leg, PAIN IN LEG, Diagnosis 11/18/2019 [facility] unspecified UNSPECIFIED 09:41:[address] EDT Y93.89 Activity, other ACTIVITY, OTHER Diagnosis 11/15/2019 Andrey Vazquez specified SPECIFIED 02:41:00 PM Medical Cente r EDT S00.81XA Abrasion of other ABRASION OF OTHER Diagnosis 11/15/2019 [facility] part of head, PART OF HEAD, 02:41:00 PM Medical Center initial encounter INITIAL ENCOUNTER EDT F20.0 Paranoid PARANOID Diagnosis 11/15/2019 [facility] schizophrenia SCHIZOPHRENIA 02:41:00 PM Medical Center EDT R45.1 Restlessness and RESTLESSNESS AND Diagnosis 11/15/2019 [facility] agitation AGITATION 02:41:00 PM Medical Cente r EDT F10.20 Alcohol ALCOHOL Diagnosis 11/12/2019 [facility] dependence, DEPENDENCE, 12:28:[address] uncomplicated UNCOMPLICATED EDT F19.90 Other OTHER Diagnosis 11/12/2019 [facility] psychoactive PSYCHOACTIVE 09:31:00 AM Medical C enter substance use, SUBSTANCE USE, EDT unspecified, UNSPECIFIED, uncomplicated UNCOMPLICATED F10.129 Alcohol abuse ALCOHOL ABUSE Diagnosis 11/12/2019 [facility] truong with WITH 09:31:00 AM Medical Cente r intoxication, INTOXICATION, EDT unspecified UNSPECIFIED Z00.00 Encounter for ENCNTR FOR Diagnosis 10/24/2019 [facility] general adult GENERAL ADULT 01:32:00 PM Medical Center medical MEDICAL EXAM W/O EDT examination ABNORMAL FINDINGS without abnormal findings R40.2410 Tucker coma TUCKER COMA Diagnosis 10/21/2019 [facility] scale score SCALE SCORE 09:23:[address] 13-15, 13-15, EDT unspecified time UNSPECIFIED TIME F10.120 Alcohol abuse ALCOHOL ABUSE Diagnosis 05/25/2019 [facility] tru[facility] with WITH 11:32:00 PM Medical Cente r intoxication, INTOXICATION, EDT uncomplicated UNCOMPLICATED R45.6 Violent behavior VIOLENT BEHAVIOR Diagnosis 05/25/2019 [facility] int [facility] 11:32:00 PM Medical Cente r EDT 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/12/2019 [facility] personality PERSONALITY 07:04:[address] disorder DISORDER EST Z00.8 Encounter for ENCOUNTER FOR Diagnosis 05/12/2019 [facility] truong other general OTHER GENERAL 07:04:00 PM Medical Center examination EXAMINATION EST Results ID Date Data Source [id number] 12/13/2019 11:29:43 AM EDT [facility] [id number] Corporation Name Value Range Interpretation Description Data Source(s ) Supporting Code Document(s ) No Results Normal (applies <[facility] information to non-numeric align="left">< [facility] exists [facility] results) content Care this episode. styleCode="[facility] d"> No Results information exists for this episode.
< /content></th> ID Date Data Source [id number] 12/10/2019 12:00:00 AM EDT [facility] Name Value Range Interpretation Code Description Data Heavenly rce(s) Supporting Document(s ) SARS-COV-2 [place] RNA RT-PCR [facility] This lab was ordered by [facility] and reported by [facility]. ID Date Data Source HematologyRou.[id number] 11/27/2019 09:44:00 PM EDT [facility] 0400 Name Value Range Interpretation Description Data Sup porting Code Source(s) Document(s ) Leukocytes 4.4-11.0 <content Saint [#/volume] in styleCode="Bold Taylor Blood by ">White Blood Medical Automated count Cell Count Center </content>6.83 KCUMM<content styleCode="Ital ics"> (4.4-11.0 KCUMM)</content > Erythrocytes 4.4-5.9 <content Saint [#/volume] in styleCode="Bold Taylor Blood by ">Red Blood Medical Automated count Cell Count Center </content>5.00 MCUMM<content styleCode="Ital ics"> (4.4-5.9 MCUMM)</content > Hemoglobin 13.5-17. <content Saint [Mass/volume] in 5 styleCode="Bold Taylor Blood ">Hemoglobin Medical </content>14.7 Center G/DL<content styleCode="Ital ics"> (13.5-17.5 G/DL)</content> Erythrocyte mean 26.0-34. <content Saint corpuscular 0 styleCode="Bold Taylor hemoglobin ">Mean Medical [Entitic mass] Corposcular Center by Automated Hemoglobin count </content>29.4 PG<content styleCode="Ital ics"> (26.0-34.0 PG)</content> Hematocrit 41.0-53. <content Saint [Volume 0 styleCode="Bold Taylor Fraction] of ">Hematocrit Medical Blood by </content>43.3 Center Automated count %<content styleCode="Ital ics"> (41.0-53.0 %)</content> Erythrocyte mean 80.0-100 <content Saint corpuscular .0 styleCode="Bold Taylor volume [Entitic ">Mean Medical volume] by Corpuscular Center Automated count Volume </content>86.6 FL<content styleCode="Ital ics"> (80.0-100.0 FL)</content> Erythrocyte mean 32.0-37. <content Saint corpuscular 0 styleCode="Bold Taylor hemoglobin ">Mean Corpus. Medical concentration Hgb Center [Mass/volume] by Concentration Automated count (MCHC) </content>33.9 G/DL<content styleCode="Ital ics"> (32.0-37.0 G/DL)</content> Platelet mean 8.0-11.0 <content Saint volume [Entitic styleCode="Bold Taylor volume] in Blood ">Mean Platelet Medical by Automated Volume Center count </content>9.4 FL<content styleCode="Ital ics"> (8.0-11.0 FL)</content> UNK 0 <content Saint styleCode="Bold Taylor ">Nucleated Red Medical Blood Cell Center </content>0.0 /100<content styleCode="Ital ics"> (0 /100)</content> Erythrocyte 11.5-14. <content Saint distribution 5 styleCode="Bold Taylor width [Ratio] by ">Red Cell Medical Automated count Distribution Center Width </content>12.5 %<content styleCode="Ital ics"> (11.5-14.5 %)</content> Platelets 130-400 <content Saint [#/volume] in styleCode="Bold Taylor Blood by ">Platelet Medical Automated count Count Center </content>324 KCUMM<content styleCode="Ital ics"> (130-400 KCUMM)</content > UNK 0.0 <content Saint styleCode="Bold Taylor ">Nucleated Red Medical Blood Cell Center Count </content>0.00 KCUMM<content styleCode="Ital ics"> (0.0 KCUMM)</content > ID Date Data Source GFR(Creatinine).[id number] 11/27/2019 09:44:00 PM EDT [facility] 0-0400 Name Value Range Interpretation Code Description Data Heavenly rce(s) Supporting Document(s ) UNK > 60 <content [facility] Vazquez styleCode="Bold"> Medical Cent er EGFR </content>96 GFR<content styleCode="Italic s"> (> 60 GFR)</content> ID Date Data Source [facility].[id number] 11/27/2019 09:44:00 PM EDT [facility] Name Value Range Interpretation Description Data Sup porting Code Source(s) Document(s ) Sodium 137-145 <content Saint [Moles/volume] styleCode="Sharif Robins in Serum or d">Sodium Medical Plasma </content>140 Center MEQ/L<content styleCode="Sepideh lics"> (137-145 MEQ/L)</conten t> Potassium 3.5-5.3 <content Saint [Moles/volume] styleCode="Sharif Taylor in Serum or d">Potassium Medical Plasma </content>3.9 Center MEQ/L<content styleCode="Sepideh lics"> (3.5-5.3 MEQ/L)</conten t> UNK 9-20 <content Saint styleCode="Sharif Taylor d">BUN Medical </content>11 Center MG/DL<content styleCode="Sepideh lics"> (9-20 MG/DL)</conten t> Glucose 74-106 <content Saint [Mass/volume] styleCode="Sharif Taylor in Serum or d">Glucose Medical Plasma </content>88 Center MG/DL<content styleCode="Sepideh lics"> (74-106 MG/DL)</conten t> Creatinine 0.5-1.3 <content Saint [Mass/volume] styleCode="Sharif Taylor in Serum or d">Creatinine Medical Plasma </content>1.1 Center MG/DL<content styleCode="Sepideh lics"> (0.5-1.3 MG/DL)</conten t> Carbon 22-30 <content Saint dioxide, total styleCode="Sharif Taylor [Moles/volume] d">Carbon Medical in Serum or Dioxide Center Plasma </content>25 MEQ/L<content styleCode="Sepideh lics"> (22-30 MEQ/L)</conten t> Chloride 98-107 Above high normal <content Saint [Moles/volume] styleCode="Sharif Vazquez in Serum or d">Chloride Medical Plasma </content>110 Center MEQ/L H<content styleCode="Sepideh lics"> (98-107 MEQ/L)</conten t> Calcium 8.4-10.2 <content Saint [Mass/volume] styleCode="Sharif Vazquez in Serum or d">Calcium Medical Plasma </content>9.1 Center MG/DL<content styleCode="Sepideh lics"> (8.4-10.2 MG/DL)</conten t> UNK > 60 <content Saint styleCode="Sharif Robins d">EGFR Medical </content>96 Center GFR<content styleCode="Sepideh lics"> (> 60 GFR)</content> ID Date Data Source Urinalysis.[id number] 11/24/2019 06:34:00 PM EDT [facility] 0 Name Value Range Interpretation Description Data Sup porting Code Source(s) Document(s ) Glucose NEGATIVE <content Saint [Mass/volume] styleCode="Sharif Vazquez in Urine by d">Urine Medical Test strip Glucose Center </content>NEGA TIVE MG/DL<content styleCode="Sepideh lics"> (NEGATIVE MG/DL)</conten t> Color of Urine YELLOW <content Saint styleCode="Sharif Robins d">Color, Medical Urine Center </content>YELL OW <content styleCode="Sepideh lics"> (YELLOW )</content> UNK CLEAR <content Saint styleCode="Sharif Robins d">Urine Medical Clarity Center </content>CARLOS R <content styleCode="Sepideh lics"> (CLEAR )</content> UNK NEGATIVE <content Saint styleCode="Sharif Robins d">Urine Medical Bilirubin Center </content>NEGA TIVE <content styleCode="Sepideh lics"> (NEGATIVE )</content> Protein NEGATIVE <content Saint [Mass/volume] styleCode="Sharif Taylor in Urine by d">Urine Medical Test strip Protein Center </content>NEGA TIVE MG/DL<content styleCode="Sepideh lics"> (NEGATIVE MG/DL)</conten t> Specific 1.015-1.02 <content Saint gravity of 5 styleCode="Sharif Taylor Urine by Test d">Urine Medical strip Specific Center [place] </content>1.02 0 <content styleCode="Sepideh lics"> (1.015-1.025 )</content> pH of Urine by 4.5-8.0 <content Saint Test strip styleCode="Sharif Taylor d">Urine pH Medical </content>7.0 Center <content styleCode="Sepideh lics"> (4.5-8.0 )</content> Ketones NEGATIVE <content Saint [Mass/volume] styleCode="Sharif Taylor in Urine by d">Urine Medical Test strip Ketone Center </content>NEGA TIVE MG/DL<content styleCode="Sepideh lics"> (NEGATIVE MG/DL)</conten t> Hemoglobin NEGATIVE <content Saint [Presence] in styleCode="Sharif Taylor Urine by Test d">Urine Blood Medical strip </content>NEGA Center TIVE <content styleCode="Sepideh lics"> (NEGATIVE )</content> Urobilinogen 0.2-1.0 Above high <content Saint [Units/volume] normal styleCode="Sharif Taylor in Urine by d">Urine Medical Test strip Urobilinogen Center </content>4.0 MG/DL H<content styleCode="Sepideh lics"> (0.2-1.0 MG/DL)</conten t> Leukocyte NEGATIVE <content [facility] esterase styleCode="Sharif Taylor [Presence] in d">Urine Medical Urine by Test Leukocyte Center strip </content>NEGA TIVE <content styleCode="Sepideh lics"> (NEGATIVE )</content> Nitrite NEGATIVE <content [facility] [Presence] in styleCode="Sharif Taylor Urine by Test d">Urine Medical strip Nitrite Center </content>NEGA TIVE <content styleCode="Sepideh lics"> (NEGATIVE )</content> ID Date Data Source CHMROUTINECCTRINIDAD.[id number] 11/24/2019 06:34:00 PM EDT [facility] -0400 Name Value Range Interpretation Description Data Sup porting Code Source(s) Document(s ) Cannabinoids <content Saint [Presence] in styleCode="Sharif [facility] Urine by Screen d">Cannabinoid Medical method >50 ng/mL s Center </content>NEGA TIVE NG/ML (Reference Range: not available)<br/ > ID Date Data Source Liver 11/24/2019 01:40:00 PM EDT [facility] Profile.[id number] Name Value Range Interpretation Description Data Sup porting Code Source(s) Document(s ) Alkaline 38-126 <content [facility] phosphatase styleCode="Bold"> Taylor [Enzymatic Alkaline Medical activity/volume] Phosphatase (ALP) Cente r in Serum or Plasma </content>77 IU/L<content styleCode="Italic s"> (38-126 IU/L)</content> UNK 0.0-0.3 <content Saint styleCode="Bold"> Taylor Bilirubin, Direct Medical </content>< 0.2 Center MG/DL<content styleCode="Italic s"> (0.0-0.3 MG/DL)</content> Bilirubin.total 0.2-1.3 Below low <content Saint [Mass/volume] in normal styleCode="Bold"> Abner hs Serum or Plasma Bilirubin Total Medical </content>< 0.2 Center MG/DL L<content styleCode="Italic s"> (0.2-1.3 MG/DL)</content> Alanine 7-50 <content [facility] aminotransferase styleCode="Bold"> Abner hs [Enzymatic Alanine Medical activity/volume] Aminotransferase Center in Serum or Plasma (ALT) </content>19 IU/L<content styleCode="Italic s"> (7-50 IU/L)</content> Aspartate 17-59 <content [facility] aminotransferase styleCode="Bold"> Abner hs [Enzymatic Aspartate Medical activity/volume] Aminotransferase Center in Serum or Plasma (AST) </content>31 IU/L<content styleCode="Italic s"> (17-59 IU/L)</content> Albumin 3.5-5.0 <content [facility] [Mass/volume] in styleCode="Bold"> Abner hs Serum or Plasma Albumin Medical </content>3.6 Center G/DL<content styleCode="Italic s"> (3.5-5.0 G/DL)</content> ID Date Data Source HematologyRou.[id number] 11/24/2019 01:40:00 PM EDT [facility] 0400 Name Value Range Interpretation Description Data Sup porting Code Source(s) Document(s ) Leukocytes 4.4-11.0 <content Saint [#/volume] in styleCode="Bold Taylor Blood by ">White Blood Medical Automated count Cell Count Center </content>5.20 KCUMM<content styleCode="Ital ics"> (4.4-11.0 KCUMM)</content > Hemoglobin 13.5-17. <content [facility] [Mass/volume] in 5 styleCode="Bold Taylor Blood ">Hemoglobin Medical </content>14.2 Center G/DL<content styleCode="Ital ics"> (13.5-17.5 G/DL)</content> Erythrocyte mean 32.0-37. <content [facility] corpuscular 0 styleCode="Bold Taylor hemoglobin ">Mean Corpus. Medical concentration Hgb Center [Mass/volume] by Concentration Automated count (MCHC) </content>33.4 G/DL<content styleCode="Ital ics"> (32.0-37.0 G/DL)</content> Erythrocyte mean 80.0-100 <content [facility] corpuscular .0 styleCode="Bold Taylor volume [Entitic ">Mean Medical volume] by Corpuscular Center Automated count Volume </content>87.8 FL<content styleCode="Ital ics"> (80.0-100.0 FL)</content> Erythrocyte mean 26.0-34. <content [facility] corpuscular 0 styleCode="Bold Taylor hemoglobin ">Mean Medical [Entitic mass] Corposcular Center by Automated Hemoglobin count </content>29.3 PG<content styleCode="Ital ics"> (26.0-34.0 PG)</content> Hematocrit 41.0-53. <content Saint [Volume 0 styleCode="Bold Taylor Fraction] of ">Hematocrit Medical Blood by </content>42.5 Center Automated count %<content styleCode="Ital ics"> (41.0-53.0 %)</content> Erythrocytes 4.4-5.9 <content Saint [#/volume] in styleCode="Bold Taylor Blood by ">Red Blood Medical Automated count Cell Count Center </content>4.84 MCUMM<content styleCode="Ital ics"> (4.4-5.9 MCUMM)</content > Platelet mean 8.0-11.0 <content [facility] volume [Entitic styleCode="Bold Taylor volume] in Blood ">Mean Platelet Medical by Automated Volume Center count </content>9.8 FL<content styleCode="Ital ics"> (8.0-11.0 FL)</content> Platelets 130-400 <content Saint [#/volume] in styleCode="Bold Taylor Blood by ">Platelet Medical Automated count Count Center </content>306 KCUMM<content styleCode="Ital ics"> (130-400 KCUMM)</content > UNK 0.0 <content Saint styleCode="Bold Taylor ">Nucleated Red Medical Blood Cell Center Count </content>0.00 KCUMM<content styleCode="Ital ics"> (0.0 KCUMM)</content > Erythrocyte 11.5-14. <content [facility] distribution 5 styleCode="Bold Taylor width [Ratio] by ">Red Cell Medical Automated count Distribution Center Width </content>12.4 %<content styleCode="Ital ics"> (11.5-14.5 %)</content> UNK 0 <content Saint styleCode="Bold Taylor ">Nucleated Red Medical Blood Cell Center </content>0.0 /100<content styleCode="Ital ics"> (0 /100)</content> ID Date Data Source GFR(Creatinine).[id number] 11/24/2019 01:40:00 PM EDT [facility] 0-0400 Name Value Range Interpretation Code Description Data Heavenly rce(s) Supporting Document(s ) UNK > 60 <content [facility] styleCode="Bold"> Medical Cent er EGFR </content>79 GFR<content styleCode="Italic s"> (> 60 GFR)</content> ID Date Data Source BMP.[id number] 11/24/2019 01:40:00 PM EDT [facility] Name Value Range Interpretation Description Data Sup porting Code Source(s) Document(s ) Sodium 137-145 <content Saint [Moles/volume] in styleCode="Bold"> Jamari phs Serum or Plasma Sodium Medical </content>140 Center MEQ/L<content styleCode="Italic s"> (137-145 MEQ/L)</content> Potassium 3.5-5.3 <content Saint [Moles/volume] in styleCode="Bold"> Jamari phs Serum or Plasma Potassium Medical </content>4.1 Center MEQ/L<content styleCode="Italic s"> (3.5-5.3 MEQ/L)</content> Creatinine 0.5-1.3 <content Saint [Mass/volume] in styleCode="Bold"> Abner hs Serum or Plasma Creatinine Medical </content>1.1 Center MG/DL<content styleCode="Italic s"> (0.5-1.3 MG/DL)</content> UNK 9-20 <content Saint styleCode="Bold"> Taylor BUN </content>15 Medical MG/DL<content Center styleCode="Italic s"> (9-20 MG/DL)</content> Glucose 74-106 <content [facility] [Mass/volume] in styleCode="Bold"> Abner hs Serum or Plasma Glucose Medical </content>100 Center MG/DL<content styleCode="Italic s"> (74-106 MG/DL)</content> Carbon dioxide, 22-30 <content [facility] total styleCode="Bold"> Taylor [Moles/volume] in Carbon Dioxide Medical Serum or Plasma </content>28 Center MEQ/L<content styleCode="Italic s"> (22-30 MEQ/L)</content> Chloride 98-107 Above high <content [facility] [Moles/volume] in normal styleCode="Bold"> Jamari phs Serum or Plasma Chloride Medical </content>108 Center MEQ/L H<content styleCode="Italic s"> (98-107 MEQ/L)</content> Calcium 8.4-10. <content [facility] [Mass/volume] in 2 styleCode="Bold"> Abner hs Serum or Plasma Calcium Medical </content>9.0 Center MG/DL<content styleCode="Italic s"> (8.4-10.2 MG/DL)</content> Bilirubin.total 0.2-1.3 Below low <content [facility] [Mass/volume] in normal styleCode="Bold"> Abner hs Serum or Plasma Bilirubin Total Medical </content>< 0.2 Center MG/DL L<content styleCode="Italic s"> (0.2-1.3 MG/DL)</content> Alanine 7-50 <content [facility] aminotransferase styleCode="Bold"> Abner hs [Enzymatic Alanine Medical activity/volume] Aminotransferase Center in Serum or Plasma (ALT) </content>19 IU/L<content styleCode="Italic s"> (7-50 IU/L)</content> Aspartate 17-59 <content [facility] aminotransferase styleCode="Bold"> Abner hs [Enzymatic Aspartate Medical activity/volume] Aminotransferase Center in Serum or Plasma (AST) </content>31 IU/L<content styleCode="Italic s"> (17-59 IU/L)</content> UNK > 60 <content [facility] styleCode="Bold"> Taylor EGFR </content>79 Medical GFR<content Center styleCode="Italic s"> (> 60 GFR)</content> Alkaline 38-126 <content [facility] phosphatase styleCode="Bold"> Taylor [Enzymatic Alkaline Medical activity/volume] Phosphatase (ALP) Cente r in Serum or Plasma </content>77 IU/L<content styleCode="Italic s"> (38-126 IU/L)</content> Albumin 3.5-5.0 <content [facility] [Mass/volume] in styleCode="Bold"> Abner hs Serum or Plasma Albumin Medical </content>3.6 Center G/DL<content styleCode="Italic s"> (3.5-5.0 G/DL)</content> ID Date Data Source HematologyRou.[id number] 11/15/2019 04:06:00 PM EDT [facility] 0400 Name Value Range Interpretation Description Data Sup porting Code Source(s) Document(s ) Hematocrit 41.0-53. <content Saint [Volume 0 styleCode="[facility] Fraction] of ">Hematocrit Medical Blood by </content>46.3 Center Automated count %<content styleCode="Ital ics"> (41.0-53.0 %)</content> Erythrocytes 4.4-5.9 <content Saint [#/volume] in styleCode="Bold [facility] Blood by ">Red Blood Medical Automated count Cell Count Center </content>5.32 MCUMM<content styleCode="Ital ics"> (4.4-5.9 MCUMM)</content > Leukocytes 4.4-11.0 <content Saint [#/volume] in styleCode="Bold [facility] Blood by ">White Blood Medical Automated count Cell Count Center </content>9.87 KCUMM<content styleCode="Ital ics"> (4.4-11.0 KCUMM)</content > Hemoglobin 13.5-17. <content [facility] [Mass/volume] in 5 styleCode="Bold Taylor Blood ">Hemoglobin Medical </content>15.8 Center G/DL<content styleCode="Ital ics"> (13.5-17.5 G/DL)</content> Erythrocyte mean 26.0-34. <content [facility] corpuscular 0 styleCode="Bold Taylor hemoglobin ">Mean Medical [Entitic mass] Corposcular Center by Automated Hemoglobin count </content>29.7 PG<content styleCode="Ital ics"> (26.0-34.0 PG)</content> Erythrocyte mean 80.0-100 <content [facility] corpuscular .0 styleCode="Bold Taylor volume [Entitic ">Mean Medical volume] by Corpuscular Center Automated count Volume </content>87.0 FL<content styleCode="Ital ics"> (80.0-100.0 FL)</content> Erythrocyte 11.5-14. <content [facility] distribution 5 styleCode="Bold Taylor width [Ratio] by ">Red Cell Medical Automated count Distribution Center Width </content>12.5 %<content styleCode="Ital ics"> (11.5-14.5 %)</content> Erythrocyte mean 32.0-37. <content [facility] corpuscular 0 styleCode="Bold Taylor hemoglobin ">Mean Corpus. Medical concentration Hgb Center [Mass/volume] by Concentration Automated count (MCHC) </content>34.1 G/DL<content styleCode="Ital ics"> (32.0-37.0 G/DL)</content> Platelets 130-400 <content Saint [#/volume] in styleCode="Bold Taylor Blood by ">Platelet Medical Automated count Count Center </content>341 KCUMM<content styleCode="Ital ics"> (130-400 KCUMM)</content > UNK 0 <content Saint styleCode="Bold Taylor ">Nucleated Red Medical Blood Cell Center </content>0.0 /100<content styleCode="Ital ics"> (0 /100)</content> UNK 0.0 <content [facility] styleCode="Bold Taylor ">Nucleated Red Medical Blood Cell Center Count </content>0.00 KCUMM<content styleCode="Ital ics"> (0.0 KCUMM)</content > Platelet mean 8.0-11.0 <content [facility] volume [Entitic styleCode="Bold Taylor volume] in Blood ">Mean Platelet Medical by Automated Volume Center count </content>10.0 FL<content styleCode="Ital ics"> (8.0-11.0 FL)</content> ID Date Data Source GFR(Creatinine).[id number] 11/15/2019 04:06:00 PM EDT [facility] 0-0400 Name Value Range Interpretation Code Description Data Heavenly rce(s) Supporting Document(s ) UNK > 60 <content [facility] Vazquez styleCode="Bold"> Medical Cent er EGFR </content>96 GFR<content styleCode="Italic s"> (> 60 GFR)</content> ID Date Data Source [id number] 11/15/2019 04:06:00 PM EDT [facility] Center Name Value Range Interpretation Description Data Sup porting Code Source(s) Document(s ) Sodium 137-145 <content Saint [Moles/volume] styleCode="Sharif Taylor in Serum or d">Sodium Medical Plasma </content>139 Center MEQ/L<content styleCode="Sepideh lics"> (137-145 MEQ/L)</conten t> Potassium 3.5-5.3 <content [facility] [Moles/volume] styleCode="Sharif Taylor in Serum or d">Potassium Medical Plasma </content>4.0 Center MEQ/L<content styleCode="Sepideh lics"> (3.5-5.3 MEQ/L)</conten t> Chloride 98-107 Above high normal <content Saint [Moles/volume] styleCode="Sharif Taylor in Serum or d">Chloride Medical Plasma </content>108 Center MEQ/L H<content styleCode="Sepideh lics"> (98-107 MEQ/L)</conten t> Carbon 22-30 <content [facility] dioxide, total styleCode="Sharif Taylor [Moles/volume] d">Carbon Medical in Serum or Dioxide Center Plasma </content>24 MEQ/L<content styleCode="Sepideh lics"> (22-30 MEQ/L)</conten t> UNK 9-20 <content Saint styleCode="Sharif Taylor d">BUN Medical </content>11 Center MG/DL<content styleCode="Sepideh lics"> (9-20 MG/DL)</conten t> UNK > 60 <content Saint styleCode="Sharif Taylor d">EGFR Medical </content>96 Center GFR<content styleCode="Sepideh lics"> (> 60 GFR)</content> Creatinine 0.5-1.3 <content Saint [Mass/volume] styleCode="Sharif Robins in Serum or d">Creatinine Medical Plasma </content>1.1 Center MG/DL<content styleCode="Sepideh lics"> (0.5-1.3 MG/DL)</conten t> Calcium 8.4-10.2 <content [facility] [Mass/volume] styleCode="Sharif Robins in Serum or d">Calcium Medical Plasma </content>9.4 Center MG/DL<content styleCode="Sepideh lics"> (8.4-10.2 MG/DL)</conten t> Glucose 74-106 Above high normal <content Saint [Mass/volume] styleCode="Sharif Robins in Serum or d">Glucose Medical Plasma </content>111 Center MG/DL H<content styleCode="Sepideh lics"> (74-106 MG/DL)</conten t> ID Date Data Source CHMROUTINECCDA.[id number] 10/21/2019 11:29:00 AM EDT [facility] -0400 Name Value Range Interpretation Description Data Sup porting Code Source(s) Document(s ) Cannabinoids <content Saint [Presence] in styleCode="Sharif Vazquez Urine by Screen d">Cannabinoid Medical method >50 ng/mL s Center </content>NEGA TIVE NG/ML (Reference Range: not available)<br/ > ID Date Data Source Urinalysis.[id number] 05/26/2019 01:30:00 AM EDT [facility] 0 Name Value Range Interpretation Description Data Sup porting Code Source(s) Document(s ) Color of Urine YELLOW <content Saint styleCode="Sharif Robins d">Color, Medical Urine Center </content>YELL OW <content styleCode="Sepideh lics"> (YELLOW )</content> UNK CLEAR <content Saint styleCode="Sharif Robins d">Urine Medical Clarity Center </content>CARLOS R <content styleCode="Sepideh lics"> (CLEAR )</content> Glucose NEGATIVE <content Saint [Mass/volume] styleCode="Sharif Vazquez in Urine by d">Urine Medical Test strip Glucose Center </content>NEGA TIVE MG/DL<content styleCode="Sepideh lics"> (NEGATIVE MG/DL)</conten t> UNK NEGATIVE <content Saint styleCode="Sharif Taylor d">Urine Medical Bilirubin Center </content>NEGA TIVE <content styleCode="Sepideh lics"> (NEGATIVE )</content> Ketones NEGATIVE <content Saint [Mass/volume] styleCode="Sharif Taylor in Urine by d">Urine Medical Test strip Ketone Center </content>NEGA TIVE MG/DL<content styleCode="Sepideh lics"> (NEGATIVE MG/DL)</conten t> Hemoglobin NEGATIVE <content [facility] [Presence] in styleCode="Sharif Robins Urine by Test d">Urine Blood Medical strip </content>NEGA Center TIVE <content styleCode="Sepideh lics"> (NEGATIVE )</content> Specific 1.015-1.02 Below low normal <content Saint gravity of 5 styleCode="Sharif Robins Urine by Test d">Urine Medical strip Specific Center [place] </content><= 1.005 L<content styleCode="Sepideh lics"> (1.015-1.025 )</content> Urobilinogen 0.2-1.0 <content Saint [Units/volume] styleCode="Sharif Robins in Urine by d">Urine Medical Test strip Urobilinogen Center </content>0.2 MG/DL<content styleCode="Sepideh lics"> (0.2-1.0 MG/DL)</conten t> Protein NEGATIVE <content [facility] [Mass/volume] styleCode="Sharif Robins in Urine by d">Urine Medical Test strip Protein Center </content>NEGA TIVE MG/DL<content styleCode="Sepideh lics"> (NEGATIVE MG/DL)</conten t> pH of Urine by 4.5-8.0 <content Saint Test strip styleCode="Sharif Taylor d">Urine pH Medical </content>5.5 Center <content styleCode="Sepideh lics"> (4.5-8.0 )</content> Nitrite NEGATIVE <content Saint [Presence] in styleCode="Sharif Vazquez Urine by Test d">Urine Medical strip Nitrite Center </content>NEGA TIVE <content styleCode="Sepideh lics"> (NEGATIVE )</content> Leukocyte NEGATIVE <content [facility] esterase styleCode="Sharif Vazquez [Presence] in d">Urine Medical Urine by Test Leukocyte Center strip </content>NEGA TIVE <content styleCode="Sepideh lics"> (NEGATIVE )</content> ID Date Data Source MROUTINECCDA.[id number] 05/26/2019 01:30:00 AM EDT [facility] -0400 Name Value Range Interpretation Description Data Sup porting Code Source(s) Document(s ) Cannabinoids <content [facility] [Presence] in styleCode="Sharif Vazquez Urine by Screen d">Cannabinoid Medical method >50 ng/mL s Center </content>NEGA TIVE NG/ML (Reference Range: not available)<br/ > ID Date Data Source Liver 05/26/2019 12:30:00 AM EDT [facility] Profile.[id number] Name Value Range Interpretation Description Data Sup porting Code Source(s) Document(s ) Alanine 7-50 <content [facility] aminotransferase styleCode="Bold"> Abner hs [Enzymatic Alanine Medical activity/volume] Aminotransferase Center in Serum or Plasma (ALT) </content>16 IU/L<content styleCode="Italic s"> (7-50 IU/L)</content> Aspartate 17-59 <content [facility] aminotransferase styleCode="Bold"> Abner hs [Enzymatic Aspartate Medical activity/volume] Aminotransferase Center in Serum or Plasma (AST) </content>25 IU/L<content styleCode="Italic s"> (17-59 IU/L)</content> Bilirubin.total 0.2-1.3 Below low <content [facility] [Mass/volume] in normal styleCode="Bold"> Abner hs Serum or Plasma Bilirubin Total Medical </content>< 0.2 Center MG/DL L<content styleCode="Italic s"> (0.2-1.3 MG/DL)</content> Alkaline 38-126 <content [facility] phosphatase styleCode="Bold"> Taylor [Enzymatic Alkaline Medical activity/volume] Phosphatase (ALP) Cente r in Serum or Plasma </content>71 IU/L<content styleCode="Italic s"> (38-126 IU/L)</content> UNK 0.0-0.3 <content [facility] styleCode="Bold"> Taylor Bilirubin, Direct Medical </content>< 0.2 Center MG/DL<content styleCode="Italic s"> (0.0-0.3 MG/DL)</content> Albumin 3.5-5.0 <content [facility] [Mass/volume] in styleCode="Bold"> Abner hs Serum or Plasma Albumin Medical </content>4.1 Center G/DL<content styleCode="Italic s"> (3.5-5.0 G/DL)</content> ID Date Data Source HematologyRou.[id number] 05/26/2019 12:30:00 AM EDT [facility] 0400 Name Value Range Interpretation Description Data Sup porting Code Source(s) Document(s ) Leukocytes 4.4-11.0 <content Saint [#/volume] in styleCode="Bold [facility] Blood by ">White Blood Medical Automated count Cell Count Center </content>4.90 KCUMM<content styleCode="Ital ics"> (4.4-11.0 KCUMM)</content > Erythrocytes 4.4-5.9 <content Saint [#/volume] in styleCode="Bold [facility] Blood by ">Red Blood Medical Automated count Cell Count Center </content>5.09 MCUMM<content styleCode="Ital ics"> (4.4-5.9 MCUMM)</content > Hemoglobin 13.5-17. <content Saint [Mass/volume] in 5 styleCode="Bold [facility] Blood ">Hemoglobin Medical </content>14.6 Center G/DL<content styleCode="Ital ics"> (13.5-17.5 G/DL)</content> Erythrocyte mean 26.0-34. <content [facility] corpuscular 0 styleCode="Bold Taylor hemoglobin ">Mean Medical [Entitic mass] Corposcular Center by Automated Hemoglobin count </content>28.7 PG<content styleCode="Ital ics"> (26.0-34.0 PG)</content> Erythrocyte mean 80.0-100 <content [facility] corpuscular .0 styleCode="Bold Taylor volume [Entitic ">Mean Medical volume] by Corpuscular Center Automated count Volume </content>85.7 FL<content styleCode="Ital ics"> (80.0-100.0 FL)</content> Hematocrit 41.0-53. <content [facility] [Volume 0 styleCode="Bold Taylor Fraction] of ">Hematocrit Medical Blood by </content>43.6 Center Automated count %<content styleCode="Ital ics"> (41.0-53.0 %)</content> Erythrocyte 11.5-14. <content [facility] distribution 5 styleCode="Bold Taylor width [Ratio] by ">Red Cell Medical Automated count Distribution Center Width </content>12.8 %<content styleCode="Ital ics"> (11.5-14.5 %)</content> Erythrocyte mean 32.0-37. <content [facility] corpuscular 0 styleCode="Bold Taylor hemoglobin ">Mean Corpus. Medical concentration Hgb Center [Mass/volume] by Concentration Automated count (MCHC) </content>33.5 G/DL<content styleCode="Ital ics"> (32.0-37.0 G/DL)</content> Platelets 130-400 <content Saint [#/volume] in styleCode="Bold Taylor Blood by ">Platelet Medical Automated count Count Center </content>280 KCUMM<content styleCode="Ital ics"> (130-400 KCUMM)</content > Platelet mean 8.0-11.0 <content Saint volume [Entitic styleCode="Bold Taylor volume] in Blood ">Mean Platelet Medical by Automated Volume Center count </content>10.4 FL<content styleCode="Ital ics"> (8.0-11.0 FL)</content> UNK 0.0 <content Saint styleCode="Bold Taylor ">Nucleated Red Medical Blood Cell Center Count </content>0.00 KCUMM<content styleCode="Ital ics"> (0.0 KCUMM)</content > UNK 0 <content Saint styleCode="Bold Taylor ">Nucleated Red Medical Blood Cell Center </content>0.0 /100<content styleCode="Ital ics"> (0 /100)</content> ID Date Data Source GFR(Creatinine).[id number] 05/26/2019 12:30:00 AM EDT [facility] 0-0400 Name Value Range Interpretation Code Description Data Heavenly rce(s) Supporting Document(s ) UNK > 60 <content [facility] styleCode="Bold"> Medical Cent er EGFR </content>108 GFR<content styleCode="Italic s"> (> 60 GFR)</content> ID Date Data Source BMP.[id number] 05/26/2019 12:30:00 AM EDT [facility] Name Value Range Interpretation Description Data Sup porting Code Source(s) Document(s ) Sodium 137-145 <content Saint [Moles/volume] in styleCode="Bold"> Jamari [facility] Serum or Plasma Sodium Medical </content>141 Center MEQ/L<content styleCode="Italic s"> (137-145 MEQ/L)</content> Potassium 3.5-5.3 <content Saint [Moles/volume] in styleCode="Bold"> Jamari [facility] Serum or Plasma Potassium Medical </content>3.7 Center MEQ/L<content styleCode="Italic s"> (3.5-5.3 MEQ/L)</content> Chloride 98-107 <content Saint [Moles/volume] in styleCode="Bold"> Jamari [facility] Serum or Plasma Chloride Medical </content>106 Center MEQ/L<content styleCode="Italic s"> (98-107 MEQ/L)</content> Carbon dioxide, 22-30 <content Saint total styleCode="Bold"> Taylor [Moles/volume] in Carbon Dioxide Medical Serum or Plasma </content>24 Center MEQ/L<content styleCode="Italic s"> (22-30 MEQ/L)</content> UNK 9-20 <content [facility] styleCode="Bold"> Taylor BUN </content>11 Medical MG/DL<content Center styleCode="Italic s"> (9-20 MG/DL)</content> Glucose 74-106 <content Saint [Mass/volume] in styleCode="Bold"> Abner hs Serum or Plasma Glucose Medical </content>90 Center MG/DL<content styleCode="Italic s"> (74-106 MG/DL)</content> Creatinine 0.5-1.3 <content [facility] [Mass/volume] in styleCode="Bold"> Abner hs Serum or Plasma Creatinine Medical </content>1.0 Center MG/DL<content styleCode="Italic s"> (0.5-1.3 MG/DL)</content> UNK > 60 <content [facility] styleCode="Bold"> Taylor EGFR Medical </content>108 Center GFR<content styleCode="Italic s"> (> 60 GFR)</content> Aspartate 17-59 <content [facility] aminotransferase styleCode="Bold"> Abner hs [Enzymatic Aspartate Medical activity/volume] Aminotransferase Center in Serum or Plasma (AST) </content>25 IU/L<content styleCode="Italic s"> (17-59 IU/L)</content> Alanine 7-50 <content [facility] aminotransferase styleCode="Bold"> Abner hs [Enzymatic Alanine Medical activity/volume] Aminotransferase Center in Serum or Plasma (ALT) </content>16 IU/L<content styleCode="Italic s"> (7-50 IU/L)</content> Calcium 8.4-10. <content Saint [Mass/volume] in 2 styleCode="Bold"> Anber hs Serum or Plasma Calcium Medical </content>9.0 Center MG/DL<content styleCode="Italic s"> (8.4-10.2 MG/DL)</content> Alkaline 38-126 <content [facility] phosphatase styleCode="Bold"> [facility] [Enzymatic Alkaline Medical activity/volume] Phosphatase (ALP) Cente r in Serum or Plasma </content>71 IU/L<content styleCode="Italic s"> (38-126 IU/L)</content> Albumin 3.5-5.0 <content [facility] [Mass/volume] in styleCode="Bold"> [facility] Serum or Plasma Albumin Medical </content>4.1 Center G/DL<content styleCode="Italic s"> (3.5-5.0 G/DL)</content> Bilirubin.total 0.2-1.3 Below low <content [facility] [Mass/volume] in normal styleCode="Bold"> [facility] Serum or Plasma Bilirubin Total Medical </content>< 0.2 Center MG/DL L<content styleCode="Italic s"> (0.2-1.3 MG/DL)</content> Procedure Social History Code Duration Value Status Description Data Source(s ) Smoking 12/14/2019 Daily Smoker completed Daily Smoker [facility] 11:12:00 AM EDT Medical C enter Smoking 12/14/2019 Daily Smoker completed Daily Smoker [facility] 10:56:00 AM EDT Medical C enter Smoking 12/03/2019 Daily Smoker completed Daily Smoker [facility] 04:19:00 PM EDT Medical C enter Smoking 12/03/2019 Daily Smoker completed Daily Smoker [facility] 01:59:00 PM EDT Medical C enter Smoking 11/30/2019 Daily Smoker completed Daily Smoker [facility] 12:59:00 PM EDT Medical C enter Smoking 11/30/2019 Not Known completed Not Known [facility] 12:57:00 PM EDT Medical C enter Smoking 11/27/2019 Not Known completed Not Known [facility] 10:16:00 PM EDT Medical C enter Smoking 11/27/2019 Not Known completed Not Known [facility] 09:19:00 PM EDT Medical C enter Smoking 11/27/2019 Not Known completed Not Known [facility] 09:10:00 PM EDT Medical C enter Smoking 11/27/2019 Not Known completed Not Known [facility] 09:00:00 PM EDT Medical C enter Smoking 11/25/2019 Not Known completed Not Known [facility] 08:51:00 AM EDT Medical C enter Smoking 11/25/2019 Not Known completed Not Known [facility] 08:46:00 AM EDT Medical C enter Smoking 11/24/2019 Not Known completed Not Known [facility] 07:26:00 PM EDT Medical C enter Smoking 11/24/2019 Not Known completed Not Known [facility] 01:17:00 PM EDT Medical C enter Smoking 11/24/2019 Not Known completed Not Known [facility] 12:40:00 PM EDT Medical C enter Smoking 11/19/2019 Not Known completed Not Known [facility] 04:20:00 PM EDT Medical C enter Smoking 11/19/2019 Not Known completed Not Known [facility] 04:16:00 PM EDT Medical C enter Smoking 11/18/2019 Not Known completed Not Known [facility] 09:57:00 PM EDT Medical C enter Smoking 11/15/2019 Not Known completed Not Known [facility] 10:02:00 PM EDT Medical C enter Smoking 11/15/2019 Not Known completed Not Known [facility] 02:59:00 PM EDT Medical C enter Smoking 11/15/2019 Not Known completed Not Known [facility] 02:54:00 PM EDT Medical C enter Smoking 11/12/2019 Denies Ever completed Denies Ever Smoked [facility] 11:17:00 PM EDT Smoked Medical C enter Smoking 11/12/2019 Denies Ever completed Denies Ever Smoked [facility] 12:52:00 PM EDT Smoked Medical C enter Smoking 11/12/2019 Denies Ever completed Denies Ever Smoked [facility] 12:47:00 PM EDT Smoked Medical C enter Smoking 11/12/2019 Denies Ever completed Denies Ever Smoked [facility] 12:34:00 PM EDT Smoked Medical C enter Smoking 11/12/2019 Denies Ever completed Denies Ever Smoked [facility] 09:55:00 AM EDT Smoked Medical C enter Smoking 11/12/2019 Denies Ever completed Denies Ever Smoked [facility] 09:39:00 AM EDT Smoked Medical C enter Smoking 11/12/2019 Denies Ever completed Denies Ever Smoked [facility] 09:35:00 AM EDT Smoked Medical C enter Smoking 10/24/2019 Denies Ever completed Denies Ever Smoked [facility] 03:08:00 PM EDT Smoked Medical C enter Smoking 10/24/2019 Denies Ever completed Denies Ever Smoked [facility] 01:40:00 PM EDT Smoked Medical C enter Smoking 10/23/2019 Denies Ever completed Denies Ever Smoked [facility] 07:08:00 PM EDT Smoked Medical C enter Smoking 10/23/2019 Denies Ever completed Denies Ever Smoked [facility] 05:52:00 PM EDT Smoked Medical C enter Smoking 10/23/2019 Denies Ever completed Denies Ever Smoked [facility] 05:45:00 PM EDT Smoked Medical C enter Smoking 10/23/2019 Denies Ever completed Denies Ever Smoked [facility] 04:17:00 PM EDT Smoked Medical C enter Smoking 10/23/2019 Denies Ever completed Denies Ever Smoked [facility] 03:57:00 PM EDT Smoked Medical C enter Smoking 10/21/2019 Denies Ever completed Denies Ever Smoked [facility] 10:04:00 AM EDT Smoked Medical C enter Smoking 10/21/2019 Denies Ever completed Denies Ever Smoked [facility] 09:40:00 AM EDT Smoked Medical C enter Smoking 10/21/2019 Denies Ever completed Denies Ever Smoked [facility] 09:30:00 AM EDT Smoked Medical C enter Smoking 05/26/2019 Denies Ever completed Denies Ever Smoked [facility] 07:22:00 AM EDT Smoked Medical C enter Smoking 05/26/2019 Denies Ever completed Denies Ever Smoked [facility] 12:04:00 AM EDT Smoked Medical C enter Smoking 05/25/2019 Denies Ever completed Denies Ever Smoked [facility] 11:43:00 PM EDT Smoked Medical C enter Smoking 05/25/2019 Denies Ever completed Denies Ever Smoked [facility] 11:40:00 PM EDT Smoked Medical C enter Smoking 05/12/2019 Denies Ever completed Denies Ever Smoked [facility] 06:11:00 PM EST Smoked Medical C enter Smoking 05/12/2019 Denies Ever completed Denies Ever Smoked [facility] 06:08:00 PM EST Smoked Medical C enter Vital Signs ID Date Data Source UNK Name Value Range Interpretation Code Description Data Source(s) Body temperature 36.781879 36.788293 [facility] Respiratory rate 18 /min 18 /min [facility] Oxygen saturation 99 % 99 % [facility] in Arterial blood [facility] by Pulse oximetry Heart rate 82 /min 82 /min [facility] Diastolic blood 66 mm[Hg] 66 mm[Hg] [facility] pressure [facility] Center Systolic blood 131 mm[Hg] 131 mm[Hg] [facility] Diastolic blood 79 {} Normal (applies to 79 {} [place] pressure non-numeric results) [facility] Systolic blood 116 {} Normal (applies to 116 {} [place] pressure non-numeric results) [facility] First Respiration 18.0000 {} Normal (applies to 18.0000 {} [place] rate Set non-numeric results) [facility] Heart rate 76.0000 {} Normal (applies to 76.0000 {} [place] non-numeric results) [facility] Body temperature 96.2000 {} Normal (applies to 96.2000 {} [place] non-numeric results) [facility] height - cm Normal (applies to {} [facility] non-numeric results) [facility] wt - obtain Normal (applies to {} [facility] non-numeric results) [facility] weight - kg 72.5000 {} Normal (applies to 72.5000 {} [place] non-numeric results) [facility] Body temperature 36.284544 36.452749 [facility] Respiratory rate 18 /min 18 /min [facility] Oxygen saturation 98 % 98 % [facility] in Arterial blood [facility] by Pulse oximetry Heart rate 90 /min 90 /min [facility] Diastolic blood 98 mm[Hg] 98 mm[Hg] [facility] Systolic blood 145 mm[Hg] 145 mm[Hg] [facility] Body weight 81.435043 81.447288 kg [facility] hs Measured kg [facility] Body temperature 36.667083 36.561934 [facility] Respiratory rate 18 /min 18 /min [facility] Oxygen saturation 99 % 99 % [facility] in Arterial blood [facility] by Pulse oximetry Heart rate 80 /min 80 /min [facility] Body height 172.102635 172.859141 cm [facility] Diastolic blood 93 mm[Hg] 93 mm[Hg] [facility] Center Systolic blood 136 mm[Hg] 136 mm[Hg] [facility] Body mass index 27.3 kg/m2 27.3 kg/m2 [facility] (BMI) [Ratio] Medical [facility] ter Body temperature 36.577483 36.867091 [facility] Respiratory rate 19 /min 19 /min [facility] Oxygen saturation 98 % 98 % [facility] in Arterial blood [facility] by Pulse oximetry Heart rate 88 /min 88 /min [facility] Diastolic blood 82 mm[Hg] 82 mm[Hg] [facility] pressure [facility] Systolic blood 125 mm[Hg] 125 mm[Hg] [facility] Body weight 83.032683 83.590925 kg [facility] Measured kg Medical Center Body temperature 36.589639 36.801523 [facility] Respiratory rate 18 /min 18 /min [facility] Oxygen saturation 97 % 97 % [facility] in Arterial blood [facility] by Pulse oximetry Heart rate 89 /min 89 /min [facility] Body height 180.789218 180.949713 cm [facility] Diastolic blood 92 mm[Hg] 92 mm[Hg] [facility] Systolic blood 130 mm[Hg] 130 mm[Hg] [facility] Body mass index 25.5 kg/m2 25.5 kg/m2 [facility] (BMI) [Ratio] Medical [facility] ter Body temperature 36.133702 36.348282 [facility] Respiratory rate 17 /min 17 /min [facility] Oxygen saturation 98 % 98 % [facility] in Arterial blood [facility] by Pulse oximetry Heart rate 71 /min 71 /min [facility] Diastolic blood 62 mm[Hg] 62 mm[Hg] [facility] Systolic blood 133 mm[Hg] 133 mm[Hg] [facility] Body temperature 36.914349 36.090964 [facility] Respiratory rate 18 /min 18 /min [facility] Oxygen saturation 95 % 95 % [facility] in Arterial blood [facility] by Pulse oximetry Heart rate 70 /min 70 /min [facility] Diastolic blood 75 mm[Hg] 75 mm[Hg] [facility] Systolic blood 127 mm[Hg] 127 mm[Hg] [facility] Body temperature 36.856487 36.021324 [facility] Respiratory rate 19 /min 19 /min [facility] Oxygen saturation 98 % 98 % [facility] in Arterial blood [facility] by Pulse oximetry Heart rate 76 /min 76 /min [facility] Diastolic blood 79 mm[Hg] 79 mm[Hg] [facility] pressure Medical Center Systolic blood 136 mm[Hg] 136 mm[Hg] [facility] Body temperature 37.029397 37.861288 [facility] Respiratory rate 20 /min 20 /min [facility] Oxygen saturation 100 % 100 % [facility] in Arterial blood [facility] by Pulse oximetry Heart rate 92 /min 92 /min [facility] Diastolic blood 76 mm[Hg] 76 mm[Hg] [facility] Center Systolic blood 156 mm[Hg] 156 mm[Hg] [facility] Body weight 80.831287 80.122681 kg [facility] Measured kg Medical Center Body temperature 36.235383 36.095687 [facility] Respiratory rate 18 /min 18 /min [facility] Oxygen saturation 98 % 98 % [facility] in Arterial blood [facility] by Pulse oximetry Heart rate 74 /min 74 /min [facility] Body height 165.277987 165.889014 cm [facility] Diastolic blood 84 mm[Hg] 84 mm[Hg] [facility] pressure [facility] Systolic blood 121 mm[Hg] 121 mm[Hg] [facility] Body mass index 29.3 kg/m2 29.3 kg/m2 [facility] (BMI) [Ratio] Medical [facility] ter Body temperature -12.114680 -12.358224 [facility] Respiratory rate 17 /min 17 /min [facility] Oxygen saturation 98 % 98 % [facility] in Arterial blood [facility] by Pulse oximetry Heart rate 92 /min 92 /min [facility] Diastolic blood 64 mm[Hg] 64 mm[Hg] [facility] pressure [facility] Systolic blood 117 mm[Hg] 117 mm[Hg] [facility] Body temperature 36.140248 36.591464 [facility] Respiratory rate 18 /min 18 /min [facility] Oxygen saturation 97 % 97 % [facility] in Arterial blood [facility] by Pulse oximetry Heart rate 90 /min 90 /min [facility] Diastolic blood 65 mm[Hg] 65 mm[Hg] [facility] pressure [facility] Center Systolic blood 108 mm[Hg] 108 mm[Hg] [facility] Body temperature 37.223090 37.386488 [facility] Respiratory rate 20 /min 20 /min [facility] Oxygen saturation 98 % 98 % [facility] in Arterial blood [facility] by Pulse oximetry Heart rate 99 /min 99 /min [facility] Diastolic blood 72 mm[Hg] 72 mm[Hg] [facility] pressure Medical Center Systolic blood 112 mm[Hg] 112 mm[Hg] [facility] Body temperature 36.787528 36.800488 [facility] Respiratory rate 19 /min 19 /min [facility] Oxygen saturation 97 % 97 % [facility] in [facility] blood [facility] by Pulse oximetry Heart rate 130 /min 130 /min [facility] Diastolic blood 90 mm[Hg] 90 mm[Hg] [facility] pressure Medical Center Systolic blood 139 mm[Hg] 139 mm[Hg] [facility] Body weight 68.042439 68.715478 kg [facility] Measured kg [facility] Body temperature 36.800647 36.024262 [facility] Respiratory rate 20 /min 20 /min [facility] Oxygen saturation 97 % 97 % [facility] in [facility] blood [facility] by Pulse oximetry Heart rate 100 /min 100 /min [facility] Body height 162.720486 162.657902 cm [facility] Medical [facility] Diastolic blood 82 mm[Hg] 82 mm[Hg] [facility] pressure Medical Center Systolic blood 124 mm[Hg] 124 mm[Hg] [facility] Medical [facility] Body mass index 25.7 kg/m2 25.7 kg/m2 [facility] (BMI) [Ratio] Medical [facility] [facility] Body weight 74.456878 74.450659 kg [facility] Measured kg [facility] Body temperature 35.679075 35.447889 [facility] Respiratory rate 18 /min 18 /min [facility] Oxygen saturation 96 % 96 % [facility] in Arterial blood [facility] by Pulse oximetry Heart rate 91 /min 91 /min [facility] Body height 167.815981 167.8624[address] [facility] Diastolic blood 72 mm[Hg] 72 mm[Hg] [facility] pressure Medical Center Systolic blood 112 mm[Hg] 112 mm[Hg] [facility] Body mass index 26.6 kg/m2 26.6 kg/m2 [facility] (BMI) [Ratio] Medical [facility] ter Respiratory rate 19 /min 19 /min [facility] Oxygen saturation 97 % 97 % [facility] in Arterial blood [facility] by Pulse oximetry Heart rate 100 /min 100 /min [facility] Body height 167.477761 167.130357 cm [facility] Diastolic blood 52 mm[Hg] 52 mm[Hg] [facility] Center Systolic blood 137 mm[Hg] 137 mm[Hg] [facility] Body mass index 26.6 kg/m2 26.6 kg/m2 [facility] (BMI) [Ratio] Medical [facility] [facility] Body weight 74.380795 74.993763 kg [facility] Measured kg [facility] Body temperature 37.468005 37.364924 [facility] Body weight 65.215918 65.584358 kg [facility] Measured kg [facility] Body temperature 36.503924 36.088965 [facility] Respiratory rate 17 /min 17 /min [facility] Oxygen saturation 98 % 98 % [facility] in Arterial blood [facility] by Pulse oximetry Heart rate 74 /min 74 /min [facility] Body height 177.052204 177.825534 cm [facility] Medical [place] Diastolic blood 65 mm[Hg] 65 mm[Hg] [facility] Medical Center Systolic blood 117 mm[Hg] 117 mm[Hg] [facility] Body mass index 20.8 kg/m2 20.8 kg/m2 [facility] (BMI) [Ratio] Medical [facility] [facility] Body weight 68.289458 68.996937 kg [facility] Measured kg [facility] Body temperature 36.912129 36.469659 [facility] Respiratory rate 18 /min 18 /min [facility] Oxygen saturation 98 % 98 % [facility] in Arterial blood [facility] by Pulse oximetry Heart rate 112 /min 112 /min [facility] Body height 172.911540 172.390586 [address] [facility] Diastolic blood 87 mm[Hg] 87 mm[Hg] [facility] pressure Medical Center Systolic blood 151 mm[Hg] 151 mm[Hg] [facility] Body mass index 22.8 kg/m2 22.8 kg/m2 [facility] (BMI) [Ratio] Medical [facility] ter Body temperature 37.368044 37.655806 [facility] Respiratory rate 18 /min 18 /min [facility] Oxygen saturation 97 % 97 % [facility] in Arterial blood [facility] by Pulse oximetry Heart rate 122 /min 122 /min [facility] Diastolic blood 89 mm[Hg] 89 mm[Hg] [facility] Systolic blood 155 mm[Hg] 155 mm[Hg] [facility] Body temperature 36.200685 36.380497 [facility] Respiratory rate 18 /min 18 /min [facility] Oxygen saturation 97 % 97 % [facility] in Arterial blood [facility] by Pulse oximetry Heart rate 77 /min 77 /min [facility] Diastolic blood 88 mm[Hg] 88 mm[Hg] [facility] Systolic blood 124 mm[Hg] 124 mm[Hg] [facility] Body temperature 36.827087 36.352859 [facility] Respiratory rate 17 /min 17 /min [facility] Oxygen saturation 98 % 98 % [facility] in Arterial blood [facility] by Pulse oximetry Heart rate 76 /min 76 /min [facility] Diastolic blood 78 mm[Hg] 78 mm[Hg] [facility] Systolic blood 126 mm[Hg] 126 mm[Hg] [facility] Body temperature 37.671153 37.983626 [facility] Respiratory rate 18 /min 18 /min [facility] Oxygen saturation 98 % 98 % [facility] in Arterial blood [facility] Center by Pulse oximetry Heart rate 72 /min 72 /min [facility] Diastolic blood 76 mm[Hg] 76 mm[Hg] [facility] pressure [facility] Center Systolic blood 128 mm[Hg] 128 mm[Hg] [facility] Body temperature 36.851634 36.670927 [facility] Respiratory rate 17 /min 17 /min [facility] Oxygen saturation 99 % 99 % [facility] in Arterial blood [facility] by Pulse oximetry Heart rate 78 /min 78 /min [facility] Diastolic blood 88 mm[Hg] 88 mm[Hg] [facility] pressure [facility] Center Systolic blood 123 mm[Hg] 123 mm[Hg] [facility] Body weight 77.704421 77.345533 kg [facility] Measured kg Medical Center Body temperature 36.885927 36.623196 [facility] Respiratory rate 17 /min 17 /min [facility] Oxygen saturation 99 % 99 % [facility] blood [facility] by Pulse oximetry Heart rate 88 /min 88 /min [facility] Body height 167.791830 167.659567 cm [facility] Medical [facility] Diastolic blood 80 mm[Hg] 80 mm[Hg] [facility] pressure Medical Center Systolic blood 132 mm[Hg] 132 mm[Hg] [facility] Body mass index 27.4 kg/m2 27.4 kg/m2 [facility] (BMI) [Ratio] Medical [facility] Body temperature 36.673340 36.964237 [facility] Respiratory rate 20 /min 20 /min [facility] Oxygen saturation 98 % 98 % [facility] in Arterial blood [facility] by Pulse oximetry Heart rate 73 /min 73 /min [facility] Diastolic blood 65 mm[Hg] 65 mm[Hg] [facility] pressure [facility] Systolic blood 109 mm[Hg] 109 mm[Hg] [facility] Body temperature 36.655750 36.616077 [facility] Respiratory rate 18 /min 18 /min [facility] Oxygen saturation 98 % 98 % [facility] blood [facility] by Pulse oximetry Heart rate 77 /min 77 /min [facility] Diastolic blood 78 mm[Hg] 78 mm[Hg] [facility] Systolic blood 124 mm[Hg] 124 mm[Hg] [facility] Body temperature 36.228498 36.411856 [facility] Respiratory rate 16 /min 16 /min [facility] Oxygen saturation 97 % 97 % [facility] in Arterial blood [facility] by Pulse oximetry Heart rate 79 /min 79 /min [facility] Diastolic blood 63 mm[Hg] 63 mm[Hg] [facility] Systolic blood 112 mm[Hg] 112 mm[Hg] [facility] Body temperature 36.995295 36.735267 [facility] Respiratory rate 16 /min 16 /min [facility] Oxygen saturation 97 % 97 % [facility] in Arterial blood [facility] by Pulse oximetry Heart rate 81 /min 81 /min [facility] Diastolic blood 55 mm[Hg] 55 mm[Hg] [facility] Systolic blood 108 mm[Hg] 108 mm[Hg] [facility] Body temperature 36.082263 36.628166 [facility] Respiratory rate 17 /min 17 /min [facility] Oxygen saturation 96 % 96 % [facility] blood [facility] by Pulse oximetry Heart rate 91 /min 91 /min [facility] Diastolic blood 81 mm[Hg] 81 mm[Hg] [facility] Systolic blood 136 mm[Hg] 136 mm[Hg] [facility] Body temperature 36.137355 36.544684 [facility] Body temperature 36.951116 36.067899 [facility] Respiratory rate 18 /min 18 /min [facility] Oxygen saturation 99 % 99 % [facility] in Arterial blood [facility] by Pulse oximetry Heart rate 80 /min 80 /min [facility] Diastolic blood 80 mm[Hg] 80 mm[Hg] [facility] Systolic blood 132 mm[Hg] 132 mm[Hg] [facility] Patient Treatment Plan of Care Planned Activity Planned Date Details Description Data Source (s) Ativan (Lorazepam) I 12/10/2019 03:58:55 [facility] oscar
== END | disposition home or self-care (01) ==
LOC: JER 06:39
DX: Z48.02 Encounter for removal of sutures (principal)
CPT/HCPCS: 99281-25

== ENCOUNTER 2019-12-22 20:18 | Emergency (ER) | payer OTHER ==
[2019-12-22 20:22] VITALS: BP 126/57; PULSE 88; BMI 21.9
[2019-12-22 20:23] VITALS: TEMP 96.8
--- NOTE | 2019-12-22 20:24 | PDOC ---
Rapid Medical Evaluation Time Seen by Provider: 12/22/19 20:19 Medical Evaluation: Allergies Allergy/AdvReac Type Severity Reaction Status Date / Time No Known Allergies Allergy Verified 12/16/19 07:06 12/22/19 20:20 I performed a brief in-person evaluation of this patient. Pt is a 39 year old male with complaint of left abdominal pain and left knee pain. Pt is a poor historian and unable to describe what he is feeling. He is unable to tell me a time frame of "not feeling good". Pertinent physical exam findings: speaking in full sentences, wet sounding cough appreciated in the ED I have ordered the following: cxr, ekg, labs Patient to proceed to ED for further evaluation. Discharge Disposition - Diagnosis Chest pain - Referrals - Patient Instructions - Post Discharge Activity
--- OUTSIDE RECORDS SUMMARY | 2019-12-22 20:47 | XMS ---
:1980 Author Organization [facility] Care Team Providers Name Role Phone PAULA REED Unavailable Unavailable GARJANNIE, CARLINE Unavailable Unavailable ED STAFF PHYSICIAN Unavailable Unavailable GRAVES MARY W Unavailable Unavailable ED STAFF PHYSICIAN Unavailable Unavailable NECKLES, LIZETTE Unavailable Unavailable ED STAFF PHYSICIAN Unavailable Unavailable ED STAFF PHYSICIAN Unavailable Unavailable ED STAFF PHYSICIAN Unavailable Unavailable ED STAFF PHYSICIAN Unavailable Unavailable ORI Velásquez Unavailable Unavailable ED STAFF PHYSICIAN Unavailable Unavailable EMERGENCY SERVICE, X Unavailable Unavailable MD TIFFANI Unavailable Unavailable OBDULIAIGNED Unavailable Unavailable ALETA Salinas Unavailable Unavailable AUGUSTO Garrido Unavailable Unavailable Re-disclosure Warning The records that [...] is protected by Article 27-F of the [facility] Public Health law. If you continue you may haveaccess to information: Regarding HIV / AIDS; Provided by facilities licensed or operated by the [facility] Office of Mental Health; or Provided by the [facility] Office for People With Developmental Disabilities. If such information is present, then the following [facility] mandated warning applies: This information [...] law may result in a fine or senior living sentence or both. A general authorization for the release of medical or other information is NOT sufficient authorization for further disclosure. Allergies and Adverse Reactions Type Description Substance Reaction Status Data Source(s ) Drug allergy Unable to Assess Unable to Assess [facility] Encounters Encounter Providers Location Date Indications Data Source(s ) Outpatient Attender: JORGE LIMON 12/19/2019 [facility] EDT Emergency Attender: CARLINE 12/19/2019 [facility], 11:59:00 AM Health Care TEENAAttender: EDT Corporatio n EMERGENCY SERVICE, XAdmitter: CARLINE RENATO, CARLINE HEADACHE Emergency Attender: JOSELINE ED STAFF 12/14/2019 10:40:00 AM [facility] PHYSICIANAttender: STAFF ED EDT - 12/14/2019 [facility] STAFF PHYSICIANAdmitter: 11:33:00 AM EDT [facility] STAFF PHYSICIANReferrer: ZUNASSIGNED Patient discharged. Inpatient Attender: BRIANNA 12/12/2019 01:16:[address] [facility] EDT - 12/13/2019 [facility] 10:50:00 AM EDT Corporati on TRAUMA Outpatient Attender: BRIANNA 12/10/2019 04:09:[address] [facility] ISIAH REED EDT [facility] TRAUMA Emergency Attender: GAIL Tran 12/03/2019 01:46 :00 PM [facility] CAttender: STAFF ED STAFF EDT - 12/03/2019 [facility] PHYSICIANAdmitter: GAIL 07:10:00 PM EDT ALETA REYNOLDS CReferrer: ZUNASSIGNED Patient discharged. Emergency Attender: JOSELINE ED STAFF 11/30/2019 12:46:00 PM [facility] PHYSICIANAttender: STAFF ED EDT - 11/30/2019 [facility] STAFF PHYSICIANAdmitter: 01:50:00 PM EDT [facility] ED STAFF PHYSICIANReferrer: ZUNASSIGNED Patient discharged. Emergency Attender: ED STAFF 11/27/2019 08:55:00 PM [facility] PHYSICIANAttender: STAFF ED EDT - 11/27/2019 [facility] STAFF PHYSICIANAdmitter: ED 11:45:00 PM EDT STAFF PHYSICIANReferrer: STAFF ED STAFF PHYSICIAN Patient discharged. Emergency Attender: JOSELINE ED STAFF 11/25/2019 08:44:00 AM [facility] PHYSICIANAttender: STAFF ED EDT - 11/25/2019 [facility] STAFF PHYSICIANAdmitter: 10:08:00 AM EDT [facility] ED STAFF PHYSICIANReferrer: ZUNASSIGNED Patient discharged. Emergency Attender: VICTOR MANUEL Tran 11/24/2019 12:28:00 PM [facility] WAttender: ED STAFF EDT - 11/24/2019 [facility] PHYSICIANAttender: STAFF ED 11:14:00 PM EDT STAFF PHYSICIANAdmitter: VICTOR MANUEL HERNANDEZ WReferrer: ZUNASSIGNED Patient discharged. Emergency Attender: JOSELINE ED STAFF 11/19/2019 04:15:00 PM [facility] PHYSICIANAttender: STAFF ED EDT - 11/19/2019 [facility] STAFF PHYSICIANAdmitter: 04:44:00 PM EDT [facility] ED STAFF PHYSICIANReferrer: ZUNASSIGNED Patient discharged. Emergency Attender: AUGUSTO Tran 11/18/2019 09:41:00 PM [facility] PAttender: STAFF ED STAFF EDT - 11/18/2019 [facility] PHYSICIANAdmitter: AUGUSTO 11:13:00 PM EDT ALEXIS Garrido Patient discharged. Emergency Attender: AUGUSTO Tran 11/15/2019 02:41:00 PM [facility] PAttender: STAFF ED STAFF EDT - 11/16/2019 [facility] PHYSICIANReferrer: STAFF ED 05:47:00 AM EDT STAFF PHYSICIAN Patient discharged. Emergency Attender: AUGUSTO Tran 11/12/2019 11:14:00 PM [facility] PAttender: STAFF ED STAFF EDT - 11/13/2019 [facility] PHYSICIANAdmitter: AUGUSTO 12:25:00 AM EDT ALEXIS Garrido Patient discharged. Emergency Attender: ORI Tran 11/12/2019 12:28:00 PM [facility] Suziisa: STAFF ED STAFF EDT - 11/12/2019 [facility] PHYSICIANAdmitter: ORI 05:09:00 PM EDT ALISON Velásquez Patient discharged. Emergency Attender: GAIL Tran 11/12/2019 09:31 :00 AM [facility] Thaiyudiisa: STAFF ED STAFF EDT - 11/12/2019 [facility] PHYSICIANAdmitter: GAIL 01:24:00 PM EDT ALETA Salinas Patient discharged. Emergency Attender: ED STAFF H 10/25/2019 11:26:00 AM [facility] PHYSICIANAttender: STAFF ED EDT - 10/25/2019 [facility] STAFF PHYSICIANAdmitter: ED 11:55:00 AM EDT STAFF PHYSICIAN Patient discharged. Emergency Attender: GAIL REYNOLDS H 10/24/2019 01:32 :00 PM [facility] Thaiyudiisa: STAFF ED STAFF EDT - 10/24/2019 [facility] PHYSICIANAdmitter: GAIL 03:18:00 PM EDT ALETA Salinas Patient discharged. Emergency Attender: VICTOR MANUEL HERNANDEZ H 10/23/2019 05:44:00 PM [facility] WAttenisa: STAFF ED STAFF EDT - 10/23/2019 [facility] PHYSICIANReferrer: STAFF ED 08:58:00 PM EDT STAFF PHYSICIAN Patient discharged. Emergency Attender: STAFF ED STAFF H 10/23/2019 03:49:00 PM [facility] PHYSICIAN EDT - 10/23/2019 04:58:00 Center PM EDT Patient discharged. Emergency Attender: JOSELINE ED STAFF H 10/21/2019 09:23:00 AM [facility] PHYSICIANAttender: STAFF ED EDT - 10/21/2019 [facility] STAFF PHYSICIANAdmitter: 05:13:00 PM EDT JOSELINE ED STAFF PHYSICIAN Patient discharged. Emergency Attender: FRIDA ARGUELLES STAFF H 05/25/2019 11:32:00 PM [facility] PHYSICIANAttender: STAFF ED EDT - 05/26/2019 [facility] Center STAFF PHYSICIANAdmitter: FRIDA 01:19:00 PM EDT ED STAFF PHYSICIAN Patient discharged. Unlisted evaluation 05/24/2019 01:00:00 NETSMART (Mental and management PM EDT [facility]) Emergency Attender: PHILIP ED H 05/12/2019 07:04:00 [facility] Medical STAFF PM EST - 05/12/2019 [place] PHYSICIANAttender: 10:48:00 PM EST STAFF ED STAFF PHYSICIANAdmitter: PHILIP ED STAFF PHYSICIAN Patient discharged. Unlisted evaluation and 05/11/2019 03:30:00 PM EST NETSMART (Mental Health management service [facility]) Unlisted evaluation and 04/13/2019 07:15:00 PM EST NETSMART (Mental Health management service [facility]) Emergency H 2018 01:07:00 AM EDT [facility] Emergency H 06/20/2017 02:36:00 PM EDT [facility] Medications Medication Brand Start Product Dose Route Administrative Pharmacy [facility] Indications Reaction Description Data Name Date Form Instructions Instructions Source(s) Ativan Ativan mg UNK active Ativan [facility] (Lorazepam) (Loraz 2019 (Lorazepam) r [facility]) 03:58: Injection 2 Healt h I 55 PM mg IVP Care EDT Corporatio n Medication administered onsite Insurance Providers Payer name Policy type Policy ID Covered Covered republican's Policy P jeramie / Coverage republican ID relationship to Davis Inf ormation type davis HIP MEDICAID [id number] SP [id number] 1 HIP MEDICAL TRANSCRIPTION EDITOR [id number] SP [id number] 1 SELF PAY 0000 Self 0000 MEDICAID OP [id number] Self [id number] MMC HIP/UBA [id number] Self [id number] 1 UNK UNK UNK UNK UNK UNK O [employer]ANS[employer] EDITOR O [id number] 01 [id number] 01 1 VALUE [id number] SP [id number] 01 OPTIONS-MEDICA 1 ID [place] TRANSCRIPTION EDITOR O [id number] 01 [id number] 01 1 HIP MEDICAID O [id number] HMO OP 1 HIP MEDICAL TRANSCRIPTION EDITOR MD [id number] SP [id number] 1 HIP MEDICAID O [id number] HMO OP VALUE [id number] SP [id number] 01 OPTIONS-MEDICA 1 ID [place] O [id number] 01 [id number] MEDICAL TRANSCRIPTION EDITOR-HIP 1 W [id number] 01 [id number] MEDICAID [id number] SP [id number] [facility] [id number] 01 [id number] HEALTHCARE Problems, Conditions, and Diagnoses Code Display Name Description Problem Type Effective Data Sour ce(s) Dates [id number] Adjustment Adjustment Complaint 05/24/2019 NETSMART disorder with disorder with 04:00:00 PM (Mental Health mixed anxiety and mixed anxiety and EDT Association of depressed mood depressed mood [facility]) [id number] Social and Social and Complaint 05/24/2019 [facility]ART Personal History Personal History 04:00:00 AM ( Mental Health Finding (is Finding (is EDT Association of broader (less broader (less [facility]) specific) than) specific) than) R45.1 Restlessness and RESTLESSNESS AND Diagnosis 12/19/2019 [facility] agitation AGITATION 11:59:00 AM [facility] EDT Care [facility] Y99.8 Other external OTHER EXTERNAL Diagnosis 12/19/2019 [facility] cause status CAUSE STATUS 11:59:00 AM [facility] EDT Care [facility] Y92.89 Other specified [facility] PLACES THE Diagnosis 12/19/2019 [facility] as the PLACE OF 11:59:00 AM [facility] place of OCCURRENCE OF THE EDT Care occurrence of the EXTERNAL CAUSE Cor poration external cause X58.XXXD Exposure to other EXPOSURE TO OTHER Diagnosis 12/19/2019 [place] specified SPECIFIED 11:59:00 AM [facility] factors, FACTORS, EDT Care subsequent SUBSEQUENT Shareable Social encounter ENCOUNTER S01.01XD Laceration LACERATION Diagnosis 12/19/2019 [place] without foreign WITHOUT FOREIGN 11:59:00 AM [facility] Health body of scalp, BODY OF SCALP, EDT Care subsequent SUBS Asktourism encounter F17.210 Nicotine NICOTINE Diagnosis 12/14/2019 [facility] dependence, DEPENDENCE, 10:40:[address] cigarettes, CIGARETTES, EDT uncomplicated UNCOMPLICATED F19.10 Other OTHER Diagnosis 12/14/2019 [facility] psychoactive PSYCHOACTIVE 10:40:00 AM Medical C enter substance abuse, SUBSTANCE ABUSE, EDT uncomplicated UNCOMPLICATED M25.569 Pain in PAIN IN Diagnosis 12/14/2019 [facility] unspecified knee UNSPECIFIED KNEE 10:40:00 AM edical Center EDT 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, ABUSE, 10:50:00 AM [facility] uncomplicated UNCOMPLICATED EDT Care [employer] R40.2413 [place] coma TUCKER COMA Diagnosis 12/13/2019 Aleksey r scale score SCALE SCORE 10:50:00 AM [facility] 13-15, at 13-15, AT EDT Care [facility] admission ADMISSION Z20.828 Contact with and CONTACT W AND Diagnosis 12/13/2019 [facility] maria r (suspected) EXPOSURE TO OTH 10:50:00 AM [facility] exposure to other VIRAL EDT Care viral COMMUNICABLE [facility] communicable DISEASES diseases Y92.830 Public park as PUBLIC PARK Diagnosis 12/13/[address] of THE [address] OF 10:50:00 AM [facility] alth occurrence of the OCCURRENCE OF THE EDT Care external cause EXTERNAL CAUSE Corpor ation W10.8XXA Fall (on) (from) FALL (ON) (FROM) Diagnosis 12/13/2019 [place] other stairs and OTHER STAIRS AND 10:50:00 AM [facility] steps, initial STEPS, INITIAL EDT Care encounter ENCOUNTER Shareable Social S01.01XA Laceration LACERATION Diagnosis 12/12/2019 [place] without foreign WITHOUT FOREIGN 01:16:00 PM [facility] nty Health body of scalp, BODY OF SCALP, EDT Care initial encounter INITIAL ENCOUNTER Shareable Social Z53.20 Procedure and PROC/TRTMT NOT Diagnosis 12/03/2019 [facility] treatment not CRD OUT BEC PT 01:46:00 PM Medica l Center carried out DECISION FOR UNSP EDT because of REASONS patient's decision for unspecified reasons 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/30/2019 [facility]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, ABUSE, 12:46:00 PM Medical Cent[facility] r uncomplicated UNCOMPLICATED EDT F91.9 Conduct disorder, CONDUCT DISORDER, Diagnosis 11/27/2019 [facility] unspecified UNSPECIFIED 08:55:[address] EDT R41.82 Altered mental ALTERED MENTAL Diagnosis 11/25/2019 [facility] status, STATUS, 08:44:00 AM [facility] r unspecified UNSPECIFIED EDT Z78.1 Physical PHYSICAL Diagnosis 11/24/2019 [facility] restraint status RESTRAINT STATUS 12:28:00 [facility] Y99.9 Unspecified UNSPECIFIED Diagnosis 11/19/2019 [facility] external cause EXTERNAL CAUSE 04:15:00 PM Medic al Center status STATUS EDT Y92.[address] Diagnosis 11/19/2019 [facility] or not applicable OR NOT APPLICABLE 04:15:00 PM Medical Center EDT Y93.9 Activity, ACTIVITY, Diagnosis 11/19/2019 [facility] unspecified UNSPECIFIED 04:15:00 PM Medical [facility] ter EDT X58.XXXA Exposure to other EXPOSURE TO OTHER Diagnosis 11/19/2019 [facility] specified SPECIFIED 04:15:00 PM [facility] factors, initial FACTORS, INITIAL EDT encounter ENCOUNTER S40.851A Superficial SUPERFICIAL Diagnosis 11/19/2019 [facility] foreign body of FOREIGN BODY OF 04:15:00 PM [facility] [place] right upper arm, RIGHT UPPER ARM, EDT initial encounter INIT ENCNTR Z53.21 Procedure and PROC/TRTMT NOT Diagnosis 11/18/2019 [facility] not CRD OUT D/T PT LV 09:41:00 PM [facility] carried out due BEF SEEN BY [facility] EDT to patient CARE PROV leaving prior to being seen by health care provider M79.606 Pain in leg, PAIN IN LEG, Diagnosis 11/18/2019 [facility] unspecified UNSPECIFIED 09:41:00 PM Medical [facility] ter EDT Y93.89 Activity, other ACTIVITY, OTHER [...] R45.1 Restlessness and RESTLESSNESS AND Diagnosis 11/15/2019 [facility] agitation AGITATION 02:41:00 PM Medical Cente r EDT F10.20 Alcohol ALCOHOL Diagnosis 11/12/2019 [facility] dependence, DEPENDENCE, 12:28:[address] uncomplicated UNCOMPLICATED EDT F19.90 Other OTHER Diagnosis 11/12/2019 [facility] psychoactive PSYCHOACTIVE 09:31:00 AM Medical C enter substance use, SUBSTANCE USE, EDT unspecified, UNSPECIFIED, uncomplicated UNCOMPLICATED F10.129 Alcohol abuse ALCOHOL ABUSE Diagnosis 11/12/2019 [facility] with WITH 09:31:00 AM Medical Cente r intoxication, INTOXICATION, EDT unspecified UNSPECIFIED Z00.00 Encounter for ENCNTR FOR Diagnosis 10/24/2019 [facility] general adult GENERAL ADULT 01:32:00 PM Medical Center medical MEDICAL EXAM W/O EDT examination ABNORMAL FINDINGS without abnormal findings R40.2410 [place] coma TUCKER COMA Diagnosis 10/21/2019 [facility] [...] EXAMINATION EST Results ID Date Data Source [id number] 12/13/2019 11:29:43 AM EDT [facility] [id number] Shareable Social Name Value Range Interpretation Description Data Source(s ) Supporting Code Document(s ) No Results Normal (applies < [place] information to non-numeric align="left">< [facility] exists [facility] results) content Care this episode. styleCode="[facility] d"> No Results information exists for this episode.
< /content></th> ID Date Data Source [id number] 12/10/2019 12:00:00 AM EDT [facility] Shareable Social Name Value Range Interpretation Code Description Data Heavenly rce(s) Supporting Document(s ) SARS-COV-2 [place] RNA RT-PCR [facility] This lab was ordered by [facility] and reported by [facility]. ID Date Data Source HematologyRou.[id number] 11/27/2019 09:44:00 PM EDT [facility]hon nt [facility] 0400 Name Value Range Interpretation Description Data [...] (0.0 KCUMM)</content > ID Date Data Source GFR(Creatinine).[id number] 11/27/2019 09:44:00 PM EDT [facility]hon [facility] 0-0400 Name Value Range Interpretation Code Description Data Heavenly rce(s) Supporting Document(s ) UNK > 60 <content [facility] styleCode="Bold"> Medical Cent er EGFR </content>96 GFR<content styleCode="Italic s"> (> 60 GFR)</content> ID Date Data Source [facility].[id number] 11/27/2019 09:44:00 PM EDT [facility] Center Name Value Range Interpretation Description Data Sup porting Code Source(s) Document(s ) Sodium 137-145 <content Saint [Moles/volume] styleCode="Sharif Robins in Serum or d">Sodium Medical Plasma </content>140 Center MEQ/L<content styleCode="Sepideh lics"> (137-145 MEQ/L)</conten t> Potassium 3.5-5.3 <content [facility] [Moles/volume] styleCode="Sharif Taylor in Serum or d">Potassium Medical Plasma </content>3.9 Center MEQ/L<content styleCode="Sepideh lics"> (3.5-5.3 MEQ/L)</conten t> UNK 9-20 <content Saint styleCode="Sharif Robins d">BUN Medical </content>11 Center MG/DL<content styleCode="Sepideh lics"> (9-20 MG/DL)</conten t> Glucose 74-106 <content Saint [Mass/volume] styleCode="Sharif Taylor in Serum or d">Glucose Medical Plasma </content>88 Center MG/DL<content styleCode="Sepideh lics"> (74-106 MG/DL)</conten t> Creatinine 0.5-1.3 <content Saint [Mass/volume] styleCode="Sharif Taylor in Serum or d">Creatinine Medical Plasma </content>1.1 Center MG/DL<content styleCode="Sepideh lics"> (0.5-1.3 MG/DL)</conten t> Carbon 22-30 <content Saint dioxide, total styleCode="Sharif Robins [Moles/volume] d">Carbon Medical in Serum or Dioxide Center Plasma </content>25 MEQ/L<content styleCode="Sepideh lics"> (22-30 MEQ/L)</conten t> Chloride 98-107 Above high normal <content Saint [Moles/volume] styleCode="Sharif Robins in Serum or d">Chloride Medical Plasma </content>110 Center MEQ/L H<content styleCode="Sepideh lics"> (98-107 MEQ/L)</conten t> Calcium 8.4-10.2 <content Saint [Mass/volume] styleCode="Sharif Robins in Serum or d">Calcium Medical Plasma </content>9.1 Center MG/DL<content styleCode="Sepideh lics"> (8.4-10.2 MG/DL)</conten t> UNK > 60 <content Saint styleCode="Sharif Robins d">EGFR Medical </content>96 Center GFR<content styleCode="Sepideh lics"> (> 60 GFR)</content> ID Date Data Source Urinalysis.[id number] 11/24/2019 06:34:00 PM EDT [facility] 0 Name Value Range Interpretation Description Data Sup porting Code Source(s) Document(s ) Glucose NEGATIVE <content Saint [Mass/volume] styleCode="Sharif Vazquez in Urine by d">Urine Medical Test strip Glucose Center </content>NEGA TIVE MG/DL<content styleCode="Sepideh lics"> (NEGATIVE MG/DL)</conten t> Color of Urine YELLOW <content Saint styleCode="Sharif Robins d">Color, Medical Urine Center </content>YELL OW <content styleCode="Sepideh lics"> (YELLOW )</content> UNK CLEAR <content Saint styleCode="Sharif Taylor d">Urine Medical Clarity Center </content>CARLOS R <content styleCode="Sepideh lics"> (CLEAR )</content> UNK NEGATIVE <content Saint styleCode="Sharif Robins d">Urine Medical Bilirubin Center </content>NEGA TIVE <content styleCode="Sepideh lics"> (NEGATIVE )</content> Protein NEGATIVE <content Saint [Mass/volume] styleCode="Sharif Robins in Urine by d">Urine Medical Test strip Protein Center </content>NEGA TIVE MG/DL<content styleCode="Sepideh lics"> (NEGATIVE MG/DL)</conten t> Specific 1.015-1.02 <content [facility] gravity of 5 styleCode="Sharif Taylor Urine by Test d">Urine Medical strip Specific Center [place] </content>1.02 0 <content styleCode="Sepideh lics"> (1.015-1.025 )</content> [...] lics"> (NEGATIVE )</content> ID Date Data Source JANET.[id number] 11/24/2019 06:34:00 PM EDT [facility] -0400 Name Value Range Interpretation Description Data Sup porting Code Source(s) Document(s ) Cannabinoids <content Saint [Presence] in styleCode="Sharif [facility] Urine by Screen d">Cannabinoid Medical method >50 ng/mL s Center </content>NEGA TIVE NG/ML (Reference Range: not available)<br/ > ID Date Data Source Liver 11/24/2019 01:40:00 PM EDT [facility] Profile.[id number] Name Value Range Interpretation Description Data Sup [...] s"> (3.5-5.0 G/DL)</content> ID Date Data Source HematologyRou.[id number] 11/24/2019 01:40:00 PM EDT [facility] 0400 Name Value Range Interpretation Description Data [...] ics"> (0 /100)</content> ID Date Data Source GFR(Creatinine).[id number] 11/24/2019 01:40:00 PM EDT [facility] 0-0400 Name Value Range Interpretation Code Description Data Heavenly rce(s) Supporting Document(s ) UNK > 60 <content [facility] styleCode="Bold"> Medical Cent er EGFR </content>79 GFR<content styleCode="Italic s"> (> 60 GFR)</content> ID Date Data Source [facility].[id number] 11/24/2019 01:40:00 PM EDT [facility] Name Value Range Interpretation Description Data [...] s"> (3.5-5.0 G/DL)</content> ID Date Data Source HematologyRou.[id number] 11/15/2019 04:06:00 PM EDT [facility] 0400 Name Value Range Interpretation Description Data Sup porting Code Source(s) Document(s ) Hematocrit 41.0-53. <content Saint [Volume 0 styleCode="Bold Taylor Fraction] of ">Hematocrit Medical Blood by </content>46.3 [...] mean 80.0-100 <content Saint corpuscular .0 styleCode="Bold [facility] volume [Entitic ">Mean Medical volume] by Corpuscular Center Automated count Volume </content>87.0 FL<content styleCode="Ital ics"> (80.0-100.0 FL)</content> Erythrocyte 11.5-14. <content Saint distribution 5 styleCode="Luke Robins width [Ratio] by ">Red Cell Medical Automated count Distribution Center Width </content>12.5 %<content styleCode="Ital ics"> (11.5-14.5 %)</content> Erythrocyte mean 32.0-37. <content [facility] corpuscular 0 styleCode="Luke [facility] hemoglobin ">Mean Corpus. Medical concentration Hgb Center [...] ics"> (8.0-11.0 FL)</content> ID Date Data Source GFR(Creatinine).[id number] 11/15/2019 04:06:00 PM EDT [facility] 0-0400 Name Value Range Interpretation Code Description Data Heavenly rce(s) Supporting Document(s ) UNK > 60 <content [facility] styleCode="Bold"> Medical Cent er EGFR </content>96 GFR<content styleCode="Italic s"> (> 60 GFR)</content> ID Date Data Source [facility].[id number] 11/15/2019 04:06:00 PM EDT [facility] Name Value Range Interpretation Description Data [...] GFR)</content> Creatinine 0.5-1.3 <content Saint [Mass/volume] styleCode="Sharif Taylor in Serum or d">Creatinine Medical Plasma </content>1.1 Center MG/DL<content styleCode="Sepideh lics"> (0.5-1.3 MG/DL)</conten t> Calcium 8.4-10.2 <content [facility] [Mass/volume] styleCode="Sharif Vazquez in Serum or d">Calcium Medical Plasma </content>9.4 Center MG/DL<content styleCode="Sepideh lics"> (8.4-10.2 MG/DL)</conten t> Glucose 74-106 Above high normal <content Saint [Mass/volume] styleCode="Sharif Taylor in Serum or d">Glucose Medical Plasma </content>111 Center MG/DL H<content styleCode="Sepideh lics"> (74-106 MG/DL)</conten t> ID Date Data Source [id number] 10/21/2019 11:29:00 AM EDT [facility] -0400 Name Value Range Interpretation Description Data Sup porting Code Source(s) Document(s ) Cannabinoids <content Saint [Presence] in styleCode="Sharif Vazquez Urine by Screen d">Cannabinoid Medical method >50 ng/mL s Center </content>NEGA TIVE NG/ML (Reference Range: not available)<br/ > ID Date Data Source [id number] 05/26/2019 01:30:00 AM EDT [facility] 0 Name Value Range Interpretation Description Data [...] t> Hemoglobin NEGATIVE <content Saint [Presence] in styleCode="Sahrif Taylor Urine by Test d">Urine Blood Medical strip </content>NEGA Center TIVE <content styleCode="Sepideh lics"> (NEGATIVE )</content> Specific 1.015-1.02 Below low normal <content Saint gravity of 5 styleCode="Sharif Taylor Urine by Test d">Urine Medical strip Specific Center [place] </content><= 1.005 L<content styleCode="Sepideh lics"> (1.015-1.025 )</content> Urobilinogen 0.2-1.0 <content Saint [Units/volume] styleCode="Sharif Taylor in Urine by d">Urine Medical Test strip Urobilinogen Center </content>0.2 MG/DL<content styleCode="Sepideh lics"> (0.2-1.0 MG/DL)</conten t> Protein NEGATIVE <content Saint [Mass/volume] styleCode="Sharif Taylor [...] )</content> Leukocyte NEGATIVE <content Saint esterase styleCode="Sharif Taylor [Presence] in d">Urine Medical Urine by Test Leukocyte Center strip </content>NEGA TIVE <content styleCode="Sepideh lics"> (NEGATIVE )</content> ID Date Data Source [id number] 05/26/2019 01:30:00 AM EDT [facility] -0400 Name Value Range Interpretation Description Data Sup porting Code Source(s) Document(s ) Cannabinoids <content Saint [Presence] in styleCode="Sharif Vazquez Urine by Screen d">Cannabinoid Medical method >50 ng/mL s Center </content>NEGA TIVE NG/ML (Reference Range: not available)<br/ > ID Date Data Source Liver 05/26/2019 12:30:00 AM EDT [facility] Profile.[id number] Name Value Range Interpretation Description Data Sup [...] s"> (3.5-5.0 G/DL)</content> ID Date Data Source HematologyRou.[id number] 05/26/2019 12:30:00 AM EDT [facility] 0400 Name Value Range Interpretation Description Data Sup porting Code Source(s) Document(s ) Leukocytes 4.4-11.0 <content Saint [#/volume] in styleCode="Bold [facility] Blood by ">White Blood Medical Automated count Cell Count Center </content>4.90 KCUMM<content styleCode="Ital ics"> (4.4-11.0 KCUMM)</content > Erythrocytes 4.4-5.9 <content Saint [#/volume] in styleCode="Bold [facility] Blood by ">Red Blood Medical Automated count Cell Count Center </content>5.09 MCUMM<content styleCode="Ital ics"> (4.4-5.9 MCUMM)</content > Hemoglobin 13.5-17. <content Saint [Mass/volume] in 5 styleCode="Bold Taylor Blood ">Hemoglobin Medical </content>14.6 Center G/DL<content styleCode="Ital [...] ics"> (0 /100)</content> ID Date Data Source GFR(Creatinine).[id number] 05/26/2019 12:30:00 AM EDT [facility] 0-0400 Name Value Range Interpretation Code Description Data Heavenly rce(s) Supporting Document(s ) UNK > 60 <content [facility] styleCode="Bold"> Medical Cent er EGFR </content>108 GFR<content styleCode="Italic s"> (> 60 GFR)</content> ID Date Data Source [id number] 05/26/2019 12:30:00 AM EDT [facility] Name Value Range Interpretation Description Data Sup porting Code Source(s) Document(s ) Sodium 137-145 <content Saint [Moles/volume] in styleCode="Bold"> [facility] Serum or Plasma Sodium Medical </content>141 Center MEQ/L<content styleCode="Italic s"> (137-145 MEQ/L)</content> Potassium 3.5-5.3 <content Saint [Moles/volume] in styleCode="Bold"> [facility] Serum or Plasma Potassium Medical </content>3.7 Center MEQ/L<content styleCode="Italic s"> (3.5-5.3 MEQ/L)</content> Chloride 98-107 <content Saint [Moles/volume] in styleCode="Bold"> [facility] Serum or Plasma Chloride Medical </content>106 Center [...] Interpretation Code Description Data Source(s) Body temperature 36.328506 36.054574 [facility] Respiratory rate 18 /min 18 /min [facility] Oxygen saturation 99 % 99 % [facility] osephs in Arterial blood Medical Center by Pulse oximetry Heart rate 82 /min 82 /min [facility] Diastolic blood 66 mm[Hg] 66 mm[Hg] [facility] pressure Medical Center Systolic blood 131 mm[Hg] 131 mm[Hg] [facility] pressure Medical Center Diastolic blood 79 {} Normal (applies to 79 {} [place] pressure non-numeric results) [facility] Systolic blood 116 {} Normal (applies to 116 {} [place] pressure non-numeric results) [facility] First Respiration 18.0000 {} Normal (applies to 18.0000 {} [place] rate Set non-numeric results) [facility] Heart rate 76.0000 {} Normal (applies to 76.0000 {} [place] non-numeric results) [facility] Body temperature 96.2000 {} Normal (applies to 96.2000 {} [place] non-numeric results) [facility] [...] [facility] Body temperature 36.789175 36.271118 [facility] Respiratory rate 18 /min 18 /min [facility] Oxygen saturation 98 % 98 % [facility] osephs in Arterial blood [facility] by Pulse oximetry Heart rate 90 /min 90 /min [facility] Diastolic blood 98 mm[Hg] 98 mm[Hg] [facility] pressure [facility] Systolic blood 145 mm[Hg] 145 mm[Hg] [facility] Body weight 81.337948 81.111992 kg [facility] Measured kg [facility] Body temperature 36.211895 36.835229 [facility] Respiratory rate 18 /min 18 /min [facility] Oxygen saturation 99 % 99 % [facility] osephs in Arterial blood [facility] by Pulse oximetry Heart rate 80 /min 80 /min [facility] Body height 172.025536 172.532289 cm [facility] Diastolic blood 93 mm[Hg] 93 mm[Hg] [facility] pressure [facility] Systolic blood 136 mm[Hg] 136 mm[Hg] [facility] Body mass index 27.3 kg/m2 27.3 kg/m2 [facility] (BMI) [Ratio] Medical [facility] ter Body temperature 36.694724 36.737212 [facility] Respiratory rate 19 /min 19 /min [facility] Oxygen saturation 98 % 98 % [facility] osephs in [facility] blood [facility] by Pulse oximetry Heart rate 88 /min 88 /min [facility] Diastolic blood 82 mm[Hg] 82 mm[Hg] [facility] pressure [facility] Systolic blood 125 mm[Hg] 125 mm[Hg] [facility] Body weight 83.999871 83.435781 kg [facility] Measured kg Medical Center Body temperature 36.128845 36.166461 [facility] Respiratory rate 18 /min 18 /min [facility] Oxygen saturation 97 % 97 % [facility] osephs in [facility] blood [facility] by Pulse oximetry Heart rate 89 /min 89 /min [facility] Body height 180.349882 180.072387 cm [facility] Diastolic blood 92 mm[Hg] 92 mm[Hg] [facility] Systolic blood 130 mm[Hg] 130 mm[Hg] [facility] Body mass index 25.5 kg/m2 25.5 kg/m2 [facility] (BMI) [Ratio] Medical [facility] ter Body temperature 36.210732 36.195565 [facility] Respiratory rate 17 /min 17 /min [facility] Oxygen saturation 98 % 98 % [facility] osephs in [facility] blood [facility] by Pulse oximetry Heart rate 71 /min 71 /min [facility] Diastolic blood 62 mm[Hg] 62 mm[Hg] [facility] Systolic blood 133 mm[Hg] 133 mm[Hg] [facility] Body temperature 36.092232 36.358467 [facility] Respiratory rate 18 /min 18 /min [facility] Oxygen saturation 95 % 95 % [facility] osephs in [facility] by Pulse oximetry Heart rate 70 /min 70 /min [facility] Diastolic blood 75 mm[Hg] 75 mm[Hg] [facility] Systolic blood 127 mm[Hg] 127 mm[Hg] [facility] Body temperature 36.431004 36.893357 [facility] Respiratory rate 19 /min 19 /min [facility] Oxygen saturation 98 % 98 % [facility] osephs in [facility] blood [facility] by Pulse oximetry Heart rate 76 /min 76 /min [facility] Diastolic blood 79 mm[Hg] 79 mm[Hg] [facility] pressure Medical Center Systolic blood 136 mm[Hg] 136 mm[Hg] [facility] Body temperature 37.224829 37.521839 [facility] Respiratory rate 20 /min 20 /min [facility] Oxygen saturation 100 % 100 % [facility] osephs in Arterial blood Medical Center by Pulse oximetry Heart rate 92 /min 92 /min [facility] Diastolic blood 76 mm[Hg] 76 mm[Hg] [facility] pressure [facility] Systolic blood 156 mm[Hg] 156 mm[Hg] [facility] Body weight 80.929977 80.929092 kg [facility] Measured kg Medical Center Body temperature 36.593190 36.538570 [facility] Respiratory rate 18 /min 18 /min [facility] Oxygen saturation 98 % 98 % [facility] osephs in [facility] blood [facility] Center by Pulse oximetry Heart rate 74 /min 74 /min [facility] Body height 165.848700 165.900626 cm [facility] Diastolic blood 84 mm[Hg] 84 mm[Hg] [facility] pressure Medical Center Systolic blood 121 mm[Hg] 121 mm[Hg] [facility] Body mass index 29.3 kg/m2 29.3 kg/m2 [facility] (BMI) [Ratio] Medical [address] Body temperature -12.049027 -12.453973 [facility] Respiratory rate 17 /min 17 /min [facility] Oxygen saturation 98 % 98 % [facility] osephs in [facility] blood [facility] by Pulse oximetry Heart rate 92 /min 92 /min [facility] Diastolic blood 64 mm[Hg] 64 mm[Hg] [facility] pressure Medical Center Systolic blood 117 mm[Hg] 117 mm[Hg] [facility] Body temperature 36.796294 36.233263 [facility] Respiratory rate 18 /min 18 /min [facility] Oxygen saturation 97 % 97 % [facility] osephs in [facility] blood [facility] by Pulse oximetry Heart rate 90 /min 90 /min [facility] Diastolic blood 65 mm[Hg] 65 mm[Hg] [facility] Center Systolic blood 108 mm[Hg] 108 mm[Hg] [facility] Center Body temperature 37.854707 37.226410 [facility] Respiratory rate 20 /min 20 /min [facility] Oxygen saturation 98 % 98 % [facility] osephs in Arterial blood [facility] Center by Pulse oximetry Heart rate 99 /min 99 /min [facility] Diastolic blood 72 mm[Hg] 72 mm[Hg] [facility] pressure Medical Center Systolic blood 112 mm[Hg] 112 mm[Hg] [facility] Center Body temperature 36.734293 36.865771 [facility] Respiratory rate 19 /min 19 /min [facility] Oxygen saturation 97 % 97 % [facility] osephs in [facility] blood [facility] by Pulse oximetry Heart rate 130 /min 130 /min [facility] Diastolic blood 90 mm[Hg] 90 mm[Hg] [facility] pressure Medical Center Systolic blood 139 mm[Hg] 139 mm[Hg] [facility] Body weight 68.671074 68.955285 kg [facility] Measured kg Medical Center Body temperature 36.089404 36.678510 [facility] Respiratory rate 20 /min 20 /min [facility] Oxygen saturation 97 % 97 % [facility] osephs in [facility] blood [facility] by Pulse oximetry Heart rate 100 /min 100 /min [facility] Body height 162.127092 162.949498 cm [facility] Medical [place] Diastolic blood 82 mm[Hg] 82 mm[Hg] [facility] pressure Medical Center Systolic blood 124 mm[Hg] 124 mm[Hg] [facility] Body mass index 25.7 kg/m2 25.7 kg/m2 [facility] (BMI) [Ratio] Medical [facility] ter Body weight 74.211428 74.406244 kg [facility] Kauffmanp hs Measured kg Medical Center Body temperature 35.745318 35.975676 [facility] Respiratory rate 18 /min 18 /min [facility] Oxygen saturation 96 % 96 % [facility] osephs in [facility] blood [facility] Center by Pulse oximetry Heart rate 91 /min 91 /min [facility] Body height 167.852879 167.163589 cm [facility] Medical [place] Diastolic blood 72 mm[Hg] 72 mm[Hg] [facility] pressure Medical Center Systolic blood 112 mm[Hg] 112 mm[Hg] [facility] Body mass index 26.6 kg/m2 26.6 kg/m2 [facility] (BMI) [Ratio] Medical [facility] ter Respiratory rate 19 /min 19 /min [facility] Oxygen saturation 97 % 97 % [facility] osephs in [facility] blood [facility] by Pulse oximetry Heart rate 100 /min 100 /min [facility] Body height 167.874121 167.702113 cm [facility] Medical [place] Diastolic blood 52 mm[Hg] 52 mm[Hg] [facility] pressure Medical Center Systolic blood 137 mm[Hg] 137 mm[Hg] [facility] Body mass index 26.6 kg/m2 26.6 kg/m2 [facility] (BMI) [Ratio] Medical [facility] ter Body weight 74.293110 74.180664 kg [facility] hs Measured kg Medical Center Body temperature 37.887592 37.390720 [facility] Body weight 65.961078 65.551349 kg [facility] hs Measured kg Medical Center Body temperature 36.319998 36.514778 [facility] Respiratory rate 17 /min 17 /min [facility] Oxygen saturation 98 % 98 % [facility] osephs in [facility] by Pulse oximetry Heart rate 74 /min 74 /min [facility] Body height 177.200015 177.505099 cm [facility] Diastolic blood 65 mm[Hg] 65 mm[Hg] [facility] Center Systolic blood 117 mm[Hg] 117 mm[Hg] [facility] Body mass index 20.8 kg/m2 20.8 kg/m2 [facility] (BMI) [Ratio] Medical [facility] ter Body weight 68.108515 68.009103 kg [facility] hs Measured kg Medical Center Body temperature 36.016234 36.119453 [facility] Respiratory rate 18 /min 18 /min [facility] Oxygen saturation 98 % 98 % [facility] osephs in [facility] by Pulse oximetry Heart rate 112 /min 112 /min [facility] Body height 172.786447 172.479608 cm [facility] Medical [place] Diastolic blood 87 mm[Hg] 87 mm[Hg] [facility] pressure Medical Center Systolic blood 151 mm[Hg] 151 mm[Hg] [facility] Body mass index 22.8 kg/m2 22.8 kg/m2 [facility] (BMI) [Ratio] Medical [address] Body temperature 37.746421 37.588918 [facility] Respiratory rate 18 /min 18 /min [facility] Oxygen saturation 97 % 97 % [facility] osephs in Arterial blood [facility] by Pulse oximetry Heart rate 122 /min 122 /min [facility] Diastolic blood 89 mm[Hg] 89 mm[Hg] [facility] Systolic blood 155 mm[Hg] 155 mm[Hg] [facility] Body temperature 36.956049 36.956856 [facility] Respiratory rate 18 /min 18 /min [facility] Oxygen saturation 97 % 97 % [facility] osephs in [facility] blood [facility] by Pulse oximetry Heart rate 77 /min 77 /min [facility] Diastolic blood 88 mm[Hg] 88 mm[Hg] [facility] Systolic blood 124 mm[Hg] 124 mm[Hg] [facility] Body temperature 36.947881 36.377399 [facility] Respiratory rate 17 /min 17 /min [facility] Oxygen saturation 98 % 98 % [facility] osephs in [facility] blood [facility] by Pulse oximetry Heart rate 76 /min 76 /min [facility] Diastolic blood 78 mm[Hg] 78 mm[Hg] [facility] Systolic blood 126 mm[Hg] 126 mm[Hg] [facility] Body temperature 37.217245 37.675551 [facility] Respiratory rate 18 /min 18 /min [facility] Oxygen saturation 98 % 98 % [facility] osephs in [facility] blood [facility] by Pulse oximetry Heart rate 72 /min 72 /min [facility] Diastolic blood 76 mm[Hg] 76 mm[Hg] [facility] Center Systolic blood 128 mm[Hg] 128 mm[Hg] [facility] Body temperature 36.572079 36.157313 [facility] Respiratory rate 17 /min 17 /min [facility] Oxygen saturation 99 % 99 % [facility] osephs in Arterial blood [facility] Center by Pulse oximetry Heart rate 78 /min 78 /min [facility] Diastolic blood 88 mm[Hg] 88 mm[Hg] [facility] pressure [facility] Systolic blood 123 mm[Hg] 123 mm[Hg] [facility] Body weight 77.637177 77.761818 kg [facility] Measured kg Medical Center Body temperature 36.784189 36.559084 [facility] Respiratory rate 17 /min 17 /min [facility] Oxygen saturation 99 % 99 % [facility] osephs in [facility] blood [facility] by Pulse oximetry Heart rate 88 /min 88 /min [facility] Body height 167.619855 167.565530 cm [facility] Diastolic blood 80 mm[Hg] 80 mm[Hg] [facility] Systolic blood 132 mm[Hg] 132 mm[Hg] [facility] Body mass index 27.4 kg/m2 27.4 kg/m2 [facility] (BMI) [Ratio] Medical [address] [facility] Body temperature 36.928156 36.502971 [facility] Respiratory rate 20 /min 20 /min [facility] Oxygen saturation 98 % 98 % [facility] osephs in [facility] blood [facility] by Pulse oximetry Heart rate 73 /min 73 /min [facility] Diastolic blood 65 mm[Hg] 65 mm[Hg] [facility] Systolic blood 109 mm[Hg] 109 mm[Hg] [facility] Body temperature 36.813150 36.636325 [facility] Respiratory rate 18 /min 18 /min [facility] Oxygen saturation 98 % 98 % [facility] osephs in [facility] blood [facility] by Pulse oximetry Heart rate 77 /min 77 /min [facility] Diastolic blood 78 mm[Hg] 78 mm[Hg] [facility] Systolic blood 124 mm[Hg] 124 mm[Hg] [facility] Body temperature 36.600981 36.531521 [facility] Respiratory rate 16 /min 16 /min [facility] Oxygen saturation 97 % 97 % [facility] osephs in Arterial blood Medical Center by Pulse oximetry Heart rate 79 /min 79 /min [facility] Diastolic blood 63 mm[Hg] 63 mm[Hg] [facility] Systolic blood 112 mm[Hg] 112 mm[Hg] [facility] Body temperature 36.643462 36.974293 [facility] Respiratory rate 16 /min 16 /min [facility] Oxygen saturation 97 % 97 % [facility] osephs in Arterial blood Medical Center by Pulse oximetry Heart rate 81 /min 81 /min [facility] Diastolic blood 55 mm[Hg] 55 mm[Hg] [facility] Systolic blood 108 mm[Hg] 108 mm[Hg] [facility] Body temperature 36.691082 36.317339 [facility] Respiratory rate 17 /min 17 /min [facility] Oxygen saturation 96 % 96 % [facility] o[facility]phs in Arterial blood [facility] Center by Pulse oximetry Heart rate 91 /min 91 /min [facility] Diastolic blood 81 mm[Hg] 81 mm[Hg] [facility] Systolic blood 136 mm[Hg] 136 mm[Hg] [facility] Body temperature 36.993775 36.492340 [facility] Body temperature 36.650994 36.510127 [facility] Respiratory rate 18 /min 18 /min [facility] Oxygen saturation 99 % 99 % [facility] o[facility]phs in Arterial blood [facility] Center by Pulse oximetry Heart rate 80 /min 80 /min [facility] Diastolic blood 80 mm[Hg] 80 mm[Hg] [facility] Systolic blood 132 mm[Hg] 132 mm[Hg] [facility] Patient Treatment Plan of Care Planned Activity Planned Date Details Description Data Source (s) Ativan (Lorazepam) I 12/10/2019 03:58:55 [facility] EDT [facility] poration
--- NOTE | 2019-12-22 22:57 | PDOC ---
History of Present Illness - General Chief Complaint: Respiratory Stated Complaint: SICK Time Seen by Provider: 12/22/19 20:19 - History of Present Illness Initial Comments: 12/22/19 22:57 HPI: 39 y/o with hx of substance abuse presenting with cough for a few days. Denies any other symptoms of fever, chills, sweats, weight loss, chest pain, SOB, abd pain, n/v, dysuria PMHx: as noted above ROS: as noted SHx: +tobacco use; no alcohol use; no rec drugs Allergies: NKDA ROS: GENERAL/CONSTITUTIONAL: No fever or chills. No weakness. HEAD, EYES, EARS, NOSE AND THROAT: No change in vision. No ear pain or discharge. No sore throat. CARDIOVASCULAR: No chest pain or shortness of breath RESPIRATORY: +cough; no wheezing, or hemoptysis. GASTROINTESTINAL: No nausea, vomiting, diarrhea or constipation. GENITOURINARY: No dysuria, frequency, or change in urination. MUSCULOSKELETAL: No joint or muscle swelling or pain. No neck or back pain. SKIN: No rash NEUROLOGIC: No headache, vertigo, loss of consciousness, or change in streng th/sensation. ENDOCRINE: No increased thirst. No abnormal weight change HEMATOLOGIC/LYMPHATIC: No anemia, easy bleeding, or history of blood clots. ALLERGIC/IMMUNOLOGIC: No hives or skin allergy. PE: GENERAL: Awake, alert, and fully oriented, no acute distress HEAD: No signs of trauma, normocephalic, atraumatic EYES: EOMI, sclera anicteric, conjunctiva clear ENT: Auricles normal inspection, hearing grossly normal, nares patent, refused throat exam NECK: Normal ROM, no lymphadenopathy LUNGS: No increased work of breathing, symmetrical chest rise, right upper lobe wheeze HEART: Regular rate, regular rhythm, normal S1 and S2, no murmur, peripheral pulses 2+ and equal bilaterally. ABDOMEN: Soft, nondistended, nontender. No guarding, no rebound. No masses. No CVAT MUSCULOSKELETAL: FROM NEUROLOGICAL: Cranial nerves II through XII grossly intact. Normal speech, stable gait, no focal sensorimotor deficits SKIN: Warm, Dry, normal turgor, no rashes or lesions noted Past History - Medical History Allergies/Adverse Reactions: Allergies Allergy/AdvReac Type Severity Reaction Status Date / Time No Known Allergies Allergy Verified 12/22/19 20:22 Home Medications: Ambulatory Orders Sertraline HCl [Zoloft -] 25 mg PO DAILY #30 tablet 10/27/19 COPD: No - Immunization History Immunization Up to Date: No - Psycho-Social/Smoking History Smoking Status: Yes Smoking History: Never smoked Have you smoked in the past 12 months: Yes Number of Cigarettes Smoked Daily: 6 If you are a former smoker, when did you quit?: did not want packet or hiv info sheet 'Breaking Loose' booklet given: 12/02/19 - Substance Abuse Hx (Audit-C & DAST Scrn) How often the patient has a drink containing alcohol: Never Score: In Men: 4 or > Positive; In Women: 3 or > Positive: 0 Screen Result (Pos requires Nsg. Audit-10AR): Negative In the last yr the pt used illegal drug/Rx for NonMed reason: No Score: Yes response is considered Positive: 0 Screen Result (Positive result requires Nsg. DAST-10): Negative *Physical Exam - Vital Signs Last Vital Signs Temp Pulse Resp BP Pulse Ox 96.8 F L 88 18 126/57 L 98 12/22/19 20:19 12/22/19 20:19 12/22/19 20:19 12/22/19 20:19 12/22/19 20:19 Medical Decision Making - Medical Decision Making 12/22/19 23:24 39 y/o with hx of substance abuse presenting with cough for a few days. VSS, AF. PE with right upper lobe wheeze -patient refusing full physical exam -refusing all meds, interventions, and imaging -patient eloped Discharge - Discharge Information Problems reviewed: Yes Clinical Impression/Diagnosis: Cough Condition: Stable Disposition: ELOPED - Follow up/Referral - Patient Discharge Instructions - Post Discharge Activity
--- NOTE | 2019-12-22 23:28 | PDOC ---
Documentation entered by Ayde Pino SCRIBE, acting as scribe for Maria Dolores Gutierrez DO. Maria Dolores Gutierrez DO: This documentation has been prepared by the mohiniibe, Ayde Pino SCRIBE, under my direction and personally reviewed by me in its entirety. I confirm that the documentation accurately reflects all work, treatment, procedures, and medical decision making performed by me. Attending Attestation - Resident Resident Name: AristeoNicolhernan - ED Attending Attestation I have performed the following: I have examined & evaluated the patient, The case was reviewed & discussed with the resident, I agree w/resident's findings & plan, Exceptions are as noted - HPI HPI: 12/22/19 22:53 Patient is a 39 year old male with a hx of substance abuse presents ambulatory c/o cough and sob. Pt states he has been smoking cigarettes. Pt refusing to come to the back of the ER or to his assigned room. Requests to be seen in the [facility] waiting room. Pt states he coughs up clear sputum. Pt unwilling to provide a complete hx. Pt denies cp. Pt admits to smoking a pack of cigarettes daily x 4 years. Pt is difficult to obtain a hx from. Allergies: NKDA 12/22/19 23:23 - Physicial Exam PE: 12/22/19 23:25 Gen: sleeping in the fast track waiting room, nad heent: pt refused exam neck: supple heart: +s1s2 reg lungs: wheezing RUL otherwise clear ambulatory with a steady gait - Medical Decision Making 12/22/19 23:26 a/p: 39yo male with cough/productive clear sputum -pt refusing xray -refusing to go to his assigned room the in the ER -refusing meds -refused complete physical exam -pt put on his coat and walked out of the ER with a steady gait Heart Score/ECG Review - ECG Intrepretation Comment:: 12/22/19 23:28 sinus at 82, nl axis, nl interval, no acute st/t wave findings Discharge - Discharge Information Problems reviewed: Yes Clinical Impression/Diagnosis: Cough Condition: Unchanged/Unknown Disposition: ELOPED - Follow up/Referral - Patient Discharge Instructions - Post Discharge Activity
== END 2019-12-22 23:15 | disposition left against medical advice (07) ==
LOC: JER 20:18
DX: R07.9 Chest pain, unspecified (principal)
CPT/HCPCS: 99285-25

== ENCOUNTER 2020-04-04 09:01 | Emergency (ER) | payer OTHER ==
[2020-04-04 09:16] VITALS: BP 131/83; PULSE 92; TEMP 98.1; BMI 29.0
[2020-04-04] MEDS ORDERED: LIDOCAINE HCL 1%, 10 MG/ML (50 mL VIAL) INF ONE (10:01)
[2020-04-04] MEDS ORDERED: DIPHTH,PERTUSS(ACELL),TET 0.5 ML DISP.SYRIN IM ONE ×2 (10:01→10:05)
[2020-04-04] MEDS ORDERED: LIDOCAINE HCL 1%, 10 MG/ML (20ML VIAL) ONE (10:04)
[2020-04-04] MEDS ORDERED: POLYETHYLENE GLYCOL 3350 119 GM BTL PO ONE (10:38)
== END 2020-04-04 11:06 | disposition home or self-care (01) ==
LOC: JERFT 09:01
PROC: 0HQGXZZ Repair Left Hand Skin, External Approach (ICD-10-PCS; principal; 2020-04-04)
PROC: 3E0234Z Introduction of Serum, Toxoid and Vaccine into Muscle, Percutaneous Approach (ICD-10-PCS; 2020-04-04)
DX: S61.412A Laceration without foreign body of left hand, initial encounter (principal); K59.00 Constipation, unspecified
CPT/HCPCS: 90715; 99284-25

== ENCOUNTER 2020-10-20 07:36 | Emergency (ER) | payer OTHER ==
[2020-10-20 07:48] VITALS: BP 99/67; PULSE 74; TEMP 98.4; BMI 24.3
== END 2020-10-20 10:00 | disposition left against medical advice (07) ==
LOC: JER 07:36
DX: Z71.89 Other specified counseling (principal)
CPT/HCPCS: 99281-25

== ENCOUNTER 2020-11-23 09:42 | Inpatient (IN) | payer OTHER ==
[2020-11-23 14:33] VITALS: BMI 27.6
[2020-11-23] MEDS ORDERED: MAG HYDROX/AL HYDROX/SIMETH 30 ML UNIT-DOSE CUP PO PRN (17:03)
[2020-11-23] MEDS ORDERED: MAGNESIUM CITRATE 300 ML BOTTLE PO PRN (17:03)
[2020-11-23] MEDS ORDERED: MAGNESIUM HYDROX 2400MG/30ML ORAL SUSPENSION 30 ML CUP PO PRN (17:03)
[2020-11-23] MEDS ORDERED: IBUPROFEN 400 MG TABLET (FP) PO PRN (17:03)
[2020-11-23] MEDS ORDERED: NICOTINE 10 MG CARTRIDGE (INHALER) IH PRN (17:03)
[2020-11-23] MEDS ORDERED: guaiFENesin 200 MG/10 ML 10 ML UNIT-DOSE CUPS PO PRN (17:03)
[2020-11-23] MEDS ORDERED: ACETAMINOPHEN 325 MG TABLET (FP) PO PRN (17:03)
[2020-11-23] MEDS ORDERED: LOPERAMIDE HCL 2 MG CAPSULE PO PRN (17:03)
[2020-11-23] MEDS ORDERED: hydrOXYzine PAMOATE 25 MG CAPSULE (FP) PO PRN (17:03)
[2020-11-23] MEDS ORDERED: P-EPHED 60MG/TRIPROLIDI 2.5MG TABLET PO PRN (17:03)
[2020-11-23] MEDS ORDERED: TUBERCULIN PPD 5 TU/0.1ML VIAL ID ONE (20:29)
[2020-11-23] MEDS: THIAMINE HCL 100 MG TABLET (FP) PO SCH (21:05)
[2020-11-23] MEDS: MELATONIN 5 MG TABLETS PO SCH (21:05)
[2020-11-23] MEDS: CLOTRIMAZOLE 1%TOPICAL SOLUTION 30 ML BOTTLE TP SCH (21:05)
[2020-11-24] MEDS: CLOTRIMAZOLE 1%TOPICAL SOLUTION 30 ML BOTTLE TP SCH ×2 (10:00→23:06)
[2020-11-24] MEDS: NICOTINE 7 MG/24 HOURS TOPICAL PATCH TD SCH (10:00)
[2020-11-24] MEDS: PRENATAL VITAMINS W/ FOLIC ACID TABLET (FP) PO SCH (10:00)
[2020-11-24] MEDS ORDERED: TUBERCULIN PPD 5 TU/0.1ML VIAL ID ONE (10:30)
[2020-11-24] MEDS ORDERED: PT OWN MED DRAWER 7, Y5N ONE (10:59)
[2020-11-24 13:12] LABS: BASO % 0.6 % (0-2.0); EOS % 7.1 % (0-4.5); HEMATOCRIT 42.5 % (35.4-49); HEMOGLOBIN 14.4 GM/dL (11.7-16.9); LYMPH % 38.1 % (8-40); MEAN CELL VOLUME 85.5 fl (80-96); MEAN PLT VOLUME 8.5 fl (7.5-11.1); MONO % 9.5 % (3.8-10.2); NEUT % 44.7 % (42.8-82.8); PLATELET COUNT 231 10^3/uL (134-434); RBC 4.97 M/mm3 (4.00-5.60); WHITE BLOOD COUNT 6.2 K/mm3 (4.0-10.0)
[2020-11-24 13:19] LABS: ALBUMIN 3.2 g/dl (3.4-5.0)
[2020-11-24 13:22] LABS: BLOOD UREA NITROGEN 14.6 mg/dL (7-18); CALCIUM 8.3 mg/dL (8.5-10.1)
[2020-11-24 13:24] LABS: BILIRUBIN,TOTAL 0.3 mg/dL (0.2-1)
[2020-11-24 13:28] LABS: TOT PROT 6.9 g/dl (6.4-8.2)
[2020-11-24 22:41] LABS: URINE APPEARANCE CLEAR; URINE BILIRUBIN NEGATIVE (NEGATIVE); URINE COLOR YELLOW; URINE GLUCOSE (UA) NEGATIVE (NEGATIVE); URINE KETONE TRACE (NEGATIVE); URINE LEUK ESTERASE NEGATIVE (NEGATIVE); URINE NITRITE NEGATIVE (NEGATIVE); URINE PROTEIN NEGATIVE (NEGATIVE)
[2020-11-24] MEDS: MELATONIN 5 MG TABLETS PO SCH (23:06)
[2020-11-24] MEDS: THIAMINE HCL 100 MG TABLET (FP) PO SCH (23:07)
[2020-11-25] MEDS ORDERED: PT OWN MED DRAWER 7, Y5N ONE (08:11)
[2020-11-25] MEDS: PRENATAL VITAMINS W/ FOLIC ACID TABLET (FP) PO SCH (09:37)
[2020-11-25] MEDS: NICOTINE 7 MG/24 HOURS TOPICAL PATCH TD SCH (09:38)
[2020-11-25] MEDS: CLOTRIMAZOLE 1%TOPICAL SOLUTION 30 ML BOTTLE TP SCH ×2 (09:39→21:18)
[2020-11-25] MEDS: MELATONIN 5 MG TABLETS PO SCH (21:18)
[2020-11-25] MEDS: THIAMINE HCL 100 MG TABLET (FP) PO SCH (21:18)
[2020-11-26] MEDS: NICOTINE 7 MG/24 HOURS TOPICAL PATCH TD SCH (09:45)
[2020-11-26] MEDS: CLOTRIMAZOLE 1%TOPICAL SOLUTION 30 ML BOTTLE TP SCH ×2 (09:45→23:38)
[2020-11-26] MEDS: PRENATAL VITAMINS W/ FOLIC ACID TABLET (FP) PO SCH (09:45)
[2020-11-26] MEDS: MELATONIN 5 MG TABLETS PO SCH (21:24)
[2020-11-26] MEDS: THIAMINE HCL 100 MG TABLET (FP) PO SCH (21:25)
[2020-11-27] MEDS: PRENATAL VITAMINS W/ FOLIC ACID TABLET (FP) PO SCH (10:02)
[2020-11-27] MEDS: NICOTINE 7 MG/24 HOURS TOPICAL PATCH TD SCH (10:02)
[2020-11-27] MEDS: CLOTRIMAZOLE 1%TOPICAL SOLUTION 30 ML BOTTLE TP SCH ×2 (10:03→21:34)
[2020-11-27] MEDS ORDERED: PT OWN MED DRAWER 7, Y5N ONE (20:15)
[2020-11-27] MEDS: THIAMINE HCL 100 MG TABLET (FP) PO SCH (21:34)
[2020-11-27] MEDS: MELATONIN 5 MG TABLETS PO SCH (21:34)
[2020-11-28] MEDS: PRENATAL VITAMINS W/ FOLIC ACID TABLET (FP) PO SCH (09:53)
[2020-11-28] MEDS: CLOTRIMAZOLE 1%TOPICAL SOLUTION 30 ML BOTTLE TP SCH ×2 (09:53→21:17)
[2020-11-28] MEDS: NICOTINE 7 MG/24 HOURS TOPICAL PATCH TD SCH (09:53)
[2020-11-28] MEDS: MELATONIN 5 MG TABLETS PO SCH (21:16)
[2020-11-28] MEDS: THIAMINE HCL 100 MG TABLET (FP) PO SCH (21:17)
[2020-11-29] MEDS ORDERED: PT OWN MED DRAWER 7, Y5N ONE (08:57)
[2020-11-29] MEDS: PRENATAL VITAMINS W/ FOLIC ACID TABLET (FP) PO SCH (09:59)
[2020-11-29] MEDS: NICOTINE 7 MG/24 HOURS TOPICAL PATCH TD SCH (10:00)
[2020-11-29] MEDS: CLOTRIMAZOLE 1%TOPICAL SOLUTION 30 ML BOTTLE TP SCH ×2 (10:00→21:46)
[2020-11-29] MEDS: MELATONIN 5 MG TABLETS PO SCH (21:45)
[2020-11-29] MEDS: THIAMINE HCL 100 MG TABLET (FP) PO SCH (21:45)
[2020-11-30] MEDS ORDERED: PT OWN MED DRAWER 7, Y5N ONE ×2 (08:15→21:32)
[2020-11-30] MEDS: NICOTINE 7 MG/24 HOURS TOPICAL PATCH TD SCH (09:47)
[2020-11-30] MEDS: PRENATAL VITAMINS W/ FOLIC ACID TABLET (FP) PO SCH (09:47)
[2020-11-30] MEDS: CLOTRIMAZOLE 1%TOPICAL SOLUTION 30 ML BOTTLE TP SCH ×2 (09:48→21:31)
[2020-11-30] MEDS: MELATONIN 5 MG TABLETS PO SCH (21:29)
[2020-11-30] MEDS: THIAMINE HCL 100 MG TABLET (FP) PO SCH (21:29)
[2020-12-01] MEDS: NICOTINE 7 MG/24 HOURS TOPICAL PATCH TD SCH (09:46)
[2020-12-01] MEDS: PRENATAL VITAMINS W/ FOLIC ACID TABLET (FP) PO SCH (09:46)
[2020-12-01] MEDS: CLOTRIMAZOLE 1%TOPICAL SOLUTION 30 ML BOTTLE TP SCH ×2 (09:47→21:37)
[2020-12-01] MEDS: MELATONIN 5 MG TABLETS PO SCH (21:36)
[2020-12-01] MEDS: THIAMINE HCL 100 MG TABLET (FP) PO SCH (21:37)
[2020-12-02] MEDS: NICOTINE 7 MG/24 HOURS TOPICAL PATCH TD SCH (09:34)
[2020-12-02] MEDS: PRENATAL VITAMINS W/ FOLIC ACID TABLET (FP) PO SCH (09:34)
[2020-12-02] MEDS: CLOTRIMAZOLE 1%TOPICAL SOLUTION 30 ML BOTTLE TP SCH ×2 (09:35→21:25)
[2020-12-02] MEDS ORDERED: PT OWN MED DRAWER 7, Y5N ONE (19:41)
[2020-12-02] MEDS: MELATONIN 5 MG TABLETS PO SCH (21:26)
[2020-12-02] MEDS: THIAMINE HCL 100 MG TABLET (FP) PO SCH (21:26)
[2020-12-03] MEDS: PRENATAL VITAMINS W/ FOLIC ACID TABLET (FP) PO SCH (09:52)
[2020-12-03] MEDS: CLOTRIMAZOLE 1%TOPICAL SOLUTION 30 ML BOTTLE TP SCH ×2 (09:53→21:29)
[2020-12-03] MEDS: NICOTINE 7 MG/24 HOURS TOPICAL PATCH TD SCH (09:53)
[2020-12-03] MEDS ORDERED: PT OWN MED DRAWER 7, Y5N ONE (19:20)
[2020-12-03] MEDS: MELATONIN 5 MG TABLETS PO SCH (21:29)
[2020-12-03] MEDS: THIAMINE HCL 100 MG TABLET (FP) PO SCH (21:29)
[2020-12-04] MEDS: PRENATAL VITAMINS W/ FOLIC ACID TABLET (FP) PO SCH (09:40)
[2020-12-04] MEDS: CLOTRIMAZOLE 1%TOPICAL SOLUTION 30 ML BOTTLE TP SCH ×2 (09:41→21:31)
[2020-12-04] MEDS: NICOTINE 7 MG/24 HOURS TOPICAL PATCH TD SCH (09:41)
[2020-12-04] MEDS: AMMONIUM LACTATE 12% LOTION 225 GM BOTTLE TP SCH ×2 (10:28→21:32)
[2020-12-04] MEDS: THIAMINE HCL 100 MG TABLET (FP) PO SCH (21:31)
[2020-12-04] MEDS: MELATONIN 5 MG TABLETS PO SCH (21:31)
[2020-12-05] MEDS: PRENATAL VITAMINS W/ FOLIC ACID TABLET (FP) PO SCH (09:58)
[2020-12-05] MEDS: AMMONIUM LACTATE 12% LOTION 225 GM BOTTLE TP SCH ×2 (09:59→21:32)
[2020-12-05] MEDS: NICOTINE 7 MG/24 HOURS TOPICAL PATCH TD SCH (10:00)
[2020-12-05] MEDS: CLOTRIMAZOLE 1%TOPICAL SOLUTION 30 ML BOTTLE TP SCH ×2 (10:00→21:32)
[2020-12-05] MEDS ORDERED: PT OWN MED DRAWER 7, Y5N ONE (19:19)
[2020-12-05] MEDS: MELATONIN 5 MG TABLETS PO SCH (21:32)
[2020-12-05] MEDS: THIAMINE HCL 100 MG TABLET (FP) PO SCH (21:32)
[2020-12-06] MEDS: PRENATAL VITAMINS W/ FOLIC ACID TABLET (FP) PO SCH (09:44)
[2020-12-06] MEDS: NICOTINE 7 MG/24 HOURS TOPICAL PATCH TD SCH (09:44)
[2020-12-06] MEDS: CLOTRIMAZOLE 1%TOPICAL SOLUTION 30 ML BOTTLE TP SCH ×2 (09:44→21:45)
[2020-12-06] MEDS: AMMONIUM LACTATE 12% LOTION 225 GM BOTTLE TP SCH ×2 (09:44→21:21)
[2020-12-06] MEDS: THIAMINE HCL 100 MG TABLET (FP) PO SCH (21:21)
[2020-12-06] MEDS: MELATONIN 5 MG TABLETS PO SCH (21:22)
[2020-12-07 06:38] VITALS: BP 119/74; PULSE 70; TEMP 98.2
== END 2020-12-07 08:36 | disposition home or self-care (01) | DRG 772 ==
LOC: YASAS 09:42 → Y3E 17:38
PROVIDERS: ADMIT Allergy & Immunology; ATTEND Allergy & Immunology
PROC: HZ42ZZZ Group Counseling for Substance Abuse Treatment, Cognitive-Behavioral (ICD-10-PCS; principal; 2020-11-23)
DX: F16.20 Hallucinogen dependence, uncomplicated (principal); F14.20 Cocaine dependence, uncomplicated; F17.210 Nicotine dependence, cigarettes, uncomplicated; L98.8 Other specified disorders of the skin and subcutaneous tissue; B35.3 Tinea pedis; Z59.0 Homelessness
CPT/HCPCS: 36415; 80053; 81003; 85025; 86780; C9803; U0003; U0005

== ENCOUNTER 2021-01-09 04:09 | Emergency (ER) | payer OTHER ==
[2021-01-09 04:25] VITALS: BP 132/89; PULSE 78; TEMP 98.9; BMI 30.7
== END 2021-01-09 08:30 | disposition left against medical advice (07) ==
LOC: JER 04:09
DX: M79.604 Pain in right leg (principal); M79.605 Pain in left leg
CPT/HCPCS: 99281-25

== ENCOUNTER 2021-02-19 19:49 | Emergency (ER) | payer OTHER ==
[2021-02-19 20:02] VITALS: BMI 30.2
[2021-02-19] MEDS ORDERED: ACETAMINOPHEN 500 MG TABLET (FP) PO ONE (22:48)
[2021-02-19] MEDS ORDERED: ACETAMINOPHEN 500 MG TABLET (FP) ONE (22:48)
[2021-02-20 02:52] VITALS: BP 99/64; PULSE 83; TEMP 99.3
== END 2021-02-20 03:57 | disposition home or self-care (01) ==
LOC: JER 19:49
DX: S22.42XA Multiple fractures of ribs, left side, initial encounter for closed fracture (principal); S09.90XA Unspecified injury of head, initial encounter; W19.XXXA Unspecified fall, initial encounter
CPT/HCPCS: 70450-TC; 71250-TC; 72125-TC; 99284-25

== ENCOUNTER 2021-02-20 12:05 | Emergency (ER) | payer OTHER ==
[2021-02-20 12:36] VITALS: BP 133/78; PULSE 89; TEMP 98.7; BMI 28.2
[2021-02-20] MEDS ORDERED: IBUPROFEN 400 MG TABLET (FP) PO ONE ×2 (14:47)
[2021-02-20] MEDS ORDERED: KETOROLAC TROMETHAMINE 30 MG/1 ML VIAL ONE (15:14)
== END 2021-02-20 14:56 | disposition home or self-care (01) ==
LOC: JER 12:05 → JERFT 12:05
DX: S22.42XA Multiple fractures of ribs, left side, initial encounter for closed fracture (principal); W19.XXXA Unspecified fall, initial encounter
CPT/HCPCS: 99283-25

== ENCOUNTER 2021-02-22 03:37 | Emergency (ER) | payer OTHER ==
[2021-02-22 04:08] VITALS: BP 101/67; PULSE 84; TEMP 98.1; BMI 29.0
== END 2021-02-22 08:09 | disposition home or self-care (01) ==
LOC: JER 03:37
DX: S22.42XA Multiple fractures of ribs, left side, initial encounter for closed fracture (principal); W19.XXXA Unspecified fall, initial encounter
CPT/HCPCS: 99283-25

== ENCOUNTER 2023-11-24 06:52 | Emergency (ER) | payer SELFPAY ==
[2023-11-24 07:04] VITALS: BP 142/89; PULSE 112; RESP 18; BMI 29.9
[2023-11-24] MEDS ORDERED: DIPHTH,PERTUSS(ACELL),TET 0.5 ML DISP.SYRIN IM ONE ×2 (07:45→07:46)
[2023-11-24] MEDS: DIPHTH,PERTUSS(ACELL),TET 0.5 ML DISP.SYRIN IM ONE (07:55)
== END 2023-11-24 07:57 | disposition left against medical advice (07) ==
LOC: JER 06:52
DX: S01.111A Laceration without foreign body of right eyelid and periocular area, initial encounter (principal); W22.8XXA Striking against or struck by other objects, initial encounter
CPT/HCPCS: 99283-25